=== PATIENT | male | born 1985 | race Caucasian/White ===

== ENCOUNTER 2022-07-08 16:26 | Inpatient (IN) | payer OTHER, SELFPAY ==
--- NOTE | ~2022-07-08 | XR_ITS ---
EXAMINATION: XR chest 2V 07/08/2022 17:30 INDICATION: Chest pain PROCEDURE: 2 view chest COMPARISON: CT chest dated 12/08/2018 FINDINGS: The lungs are clear. The cardiomediastinal silhouette is within normal limits. There are no pleural effusions. There is no pneumothorax suspected. IMPRESSION: 1: NO ACUTE CARDIOPULMONARY DISEASE. Reviewed, dictated and finalized at location A. [employer]
[2022-07-08 16:35] VITALS: BP 161/113; PULSE 96; RESP 18; TEMP 36.3; O2SAT 100
--- NOTE | 2022-07-08 16:52 | ECG_ITS ---
Measurements Intervals [place] Rate: 89 P: 72 TX: 129 QRS: 49 QRSD: 88 T: 14 QT: 357 QTc: 435 Interpretive Statements SINUS RHYTHM CONSIDER INFERIOR INFARCT, AGE INDETERMINATE BASELINE ARTIFACT- I, III ABNORMAL ECG NO PREVIOUS ECG AVAILABLE FOR COMPARISON Electronically Signed On 07-08-2022 20:22:16 COLLATERAL ANALYST by Volodymyr Bradley D.O.
--- NOTE | 2022-07-08 16:57 | PC.NURSE ---
when ekg completed pt inquiring about how long is this ordeal going to take . plan of care regarding cp and si reviewed with pt.
--- NOTE | 2022-07-08 17:16 | ED.CHESTPAIN ---
HPI - Chest Pain General Chief Complaint: Chest Pain <JACKIE Gonzalez Last Filed: 07/08/22 22:50> Stated Complaint: ekg concerns <JACKIE Gonzalez Last Filed: 07/08/22 22:50> Time Seen by Provider: 07/08/22 17:06 <JACKIE Gonzalez Last Filed: 07/08/22 22:50> History of Present Illness HPI narrative: 36-year-old male with a history of hypertension and asthma here for evaluation of chest pain over the past week. Patient states the pain is present in his left upper chest, occasionally moves to his left arm and his left scapula. The pain seems to come on at random but is alleviated at nighttime when he is lying down flat. Pain is worse when he smokes. He attempted ibuprofen and Tylenol without relief of his symptoms. Denies a history of previous similar sensation. No nausea, vomiting, cough, shortness of breath, fevers or chills, leg swelling or pain. He did have COVID last month and states that his respiratory symptoms have improved. Patient presented to his PCP today for the symptoms, had an EKG done that was reportedly abnormal and so he was referred to the ED. Has a family history of cardiac disease in his father. No recent long trips or travel, surgery, history of DVT or PE. Incidentally patient high risk on [place] scale due to SI with plan; appropriate precautions taken <JACKIE Gonzalez Last Filed: 07/08/22 22:50> Related Data Home Medications: Home Medications Medication Instructions Recorded Confirmed albuterol sulfate 90 mcg/actuation 2 puff inhalation Q6H PRN 07/08/22 07/08/22 aerosol inhaler Shortness Of Breath Or Wheezing hydroxyzine HCl 25 mg tablet 25 mg PO QID PRN Anxiety 07/08/22 07/08/22 valsartan 320 mg tablet 320 mg PO DAILY 07/08/22 07/08/22 venlafaxine 75 mg capsule,extended 75 mg PO DAILY 07/08/22 07/08/22 release 24 hr <JACKIE Gonzalez Last Filed: 07/08/22 22:50> Allergies/Adverse Reactions: Allergies Allergy/AdvReac Type Severity Reaction Status Date / Time No Known Allergies Allergy Unverified 05/13/16 13:34 <Yamileth Longoria PA-C - Last Filed: 07/08/22 22:50> Review of Systems Review of Systems: Gen.: Denies fevers or chills Eyes: Denies eye pain or visual change ENT: Denies congestion Respiratory: Denies shortness of breath or cough CV: Reports chest pain GI: Denies abdominal pain nausea, emesis or diarrhea : denies burning, urgency, frequency or hematuria Musculoskeletal: Denies back pain or muscle pain Neuro: Denies numbness, tingling, weakness or focal weakness Skin: Denies rash Except as documented, all other systems reviewed and negative <Yamileth Longoria PA-C - Last Filed: 07/08/22 22:50> PMFSH Family History Family History: Family History (Updated 07/08/22 @ 21:57 by Eduar Dias RN) Father Congestive heart failure Mother Asthma <Yamileth Longoria PA-C - Last Filed: 07/08/22 22:50> Social History Social History: Social History Smoking status: Never smoker Alcohol intake: current Drinks per week: 10 Substance use: current Substance use type: marijuana Last use: 07/07/2022 Lack of Transportation: No Lack of Food: Never True Current Housing: I Have Housing Concerned About Future Housing: No Difficulty Paying Gas/Electric Bills: No Difficulty Paying for Meds: No Currently Unemployed: No Education: Master's Degree or Higher Difficulty w/ Childcare or Family Care: No Spiritual care concerns: No <Yamileth Longoria PA-C - Last Filed: 07/08/22 22:50> Exam Narrative: APPEARANCE: Well appearing, no pain in distress, well-nourished. Head: Normocephalic and atraumatic. EYES: PERRLA/EOMI, conjunctivae clear NOSE: No nasal drainage EARS: External ear normal in appearance THROAT: Oropharynx is clear. Mucous membranes are moist. NECK: Supple. No adenopathy, no masses. RESPIRATORY: Airway patent,
[2022-07-08 18:54] LABS: Basophils Absolute Auto 0.1 K/mm3 (0.0-0.1); Basophils Percent Auto 0.7 % (0.2-1.2); Eosinophils Percent Auto 0.1 % (0-4.4); Hematocrit 46.3 % (42.0-52.0); Hemoglobin 16.2 g/dL (14.0-18.0); Immature Granulocyte Absolute 0.02 K/mm3 (0.00-0.031); Immature Granulocyte Percent A 0.2 % (0-0.5); Lymphocytes Absolute Auto 1.43 K/mm3 (0.9-3.2); Lymphocytes Percent Auto 15.1 % (18.3-44.2); Mean Corpuscular Volume 97.3 fl (80-100); Monocytes Absolute Auto 0.7 K/mm3 (0.1-0.6); Neutrophils Absolute Auto 7.3 K/mm3 (1.3-6.7); Neutrophils Percent Auto 76.9 % (45.5-73.1); Platelet Count Result 271 k/mm3 (150-375); Red Blood Count 4.76 M/mm3 (4.6-6.20); Red Cell Distribution Width 12.6 % (11.5-14.5); White Blood Count 9.5 K/mm3 (4.5-10.0)
[2022-07-08 19:15] LABS: Alanine Aminotransferase 84 U/L (6-50); Albumin Level 4.4 g/dL (3.5-5.1); Alkaline Phosphatase 85 U/L (38-126); Anion Gap 7 mmol/L (8-16); Aspartate Amino Transferase 80 U/L (17-59); Bilirubin,Total 0.6 mg/dL (0.2-1.3); Blood Urea Nitrogen 9 mg/dL (9-20); Calcium 8.7 mg/dL (8.4-10.2); Carbon Dioxide 27 mmol/L (22-30); Chloride 106 mmol/L (98-107); Estimated CRCL calculation 135 ml/min; Estimated Glomerular Filt Rate > 60; Glucose 128 mg/dL (65-110); Lipase 33 U/L (23-300); Potassium 3.9 mmol/L (3.4-5.0); Sodium 140 mmol/L (137-145)
[2022-07-08 19:26] LABS: Amphetamine Screen Urine Negative (Negative); Barbiturate Screen Urine Negative (Negative); Benzodiazepines Screen Urine Negative (Negative); Cannabinoid Screen Urine Positive (Negative); Cocaine Screen Urine Negative (Negative); Methadone Screen Urine Negative (Negative); Opiate Screen Urine Negative (Negative); Phencyclidine Screen Urine Negative (Negative)
[2022-07-08 19:29] LABS: Influenza A QL RT-PCR Negative (Negative); Influenza B QL RT-PCR Negative (Negative); SARS-CoV-2 RNA PCR Negative
[2022-07-08] MEDS: ASPIRIN 81 MG CHEWABLE TABLET 324 MG PO (19:48)
[2022-07-08 19:52] LABS: D Dimer 0.44 ug/mL (<0.48)
[2022-07-08 19:59] LABS: Prothrombin Time 13.2 Seconds (11.1-14.7)
[2022-07-08 20:00] LABS: Partial Thromboplastin Time 28.3 SECONDS (22.3-36.8)
--- NOTE | 2022-07-08 20:21 | PM.IMHP ---
H&P: HPI History of Present Illness Date/Time: 07/08/22 20:21 Chief Complaint: Chest pain Narrative: 36-year-old male with with history of hypertension, hyperlipidemia, positive family history of ND, father had ND about 46 years old presented to ED of chest pain. Patient started to have chest pain on Tuesday, locating in left chest, radiating to left shoulder, associated with dyspnea. Pain started when patient was walking. Patient had another episode of chest pain today, therefore patient came to ER for evaluation. Patient denies fever, chills, cough, abdominal pain, nausea vomiting diarrhea dysuria. In the ER, patient was found have elevated troponin, EKG shows sinus rhythm no specific ST T wave changes. D-dimer is negative. Patient received aspirin 325 mg, Lovenox 1 milligram/kilos in the ER. We admit patient for further evaluation and management Review of Systems Review of Systems: All systems reviewed & are unremarkable except as noted in HPI and below Meds Home Medications and Allergies Allergies Allergy/AdvReac Type Severity Reaction Status Date / Time No Known Allergies Allergy Unverified 05/13/16 13:34 Vital Signs Vital Signs - 24 hr 07/08/22 16:35 Temperature 97.4 F L Pulse Rate 96 Respiratory Rate 18 Blood Pressure 161/113 H Pulse Oximetry 100 Oxygen Delivery Room Air Exam Narrative: GENERAL: Pleasant, in no acute distress. Well-nourished. - EYES: EOMI. Anicteric. - HENT: Moist mucous membranes. - LUNGS: Clear to auscultation bilaterally, no wheezing, rhonchi, or rales. - CARDIOVASCULAR: Regular rate and rhythm. No murmur. No JVD. - ABDOMEN: Soft, non-tender and non-distended. No palpable masses. - EXTREMITIES: No edema. Peripheral pulses 2+. Non-tender. - NEUROLOGIC: No focal neurological deficits. CN II-XII grossly intact. - PSYCHIATRIC: Awake, Alert and oriented x 3. Appropriate mood and affect. - SKIN: No rashes or lesions. Warm. - LYMPH: No cervical lymphadenopathy. H&P: Results Labs Labs: Short CBC 07/08/22 Range/Units 18:43 WBC 9.5 (4.5-10.0) K/mm3 Hgb 16.2 (14.0-18.0) g/dL Hct 46.3 (42.0-52.0) % Plt Count 271 (150-375) k/mm3 BMP 07/08/22 18:43 Sodium 140 Potassium 3.9 Chloride 106 Carbon Dioxide 27 BUN 9 Creatinine 0.70 Glucose 128 H Calcium 8.7 Cardiac Enzymes 07/08/22 Range/Units 18:43 Troponin I 2.480 H* (0.000-0.034) ng/mL Liver Function 07/08/22 Range/Units 18:43 Total Bilirubin 0.6 (0.2-1.3) mg/dL AST 80 H (17-59) U/L ALT 84 H (6-50) U/L Alkaline Phosphatase 85 (38-126) U/L Albumin 4.4 (3.5-5.1) g/dL Assessment and Plan Assessment and plan (1) Acute non-ST elevation myocardial infarction (NSTEMI): Code(s): I21.4 - Non-ST elevation (NSTEMI) myocardial infarction Status: Acute Assessment and Plan: Chest pain Patient has family history of CAD Elevated troponin, EKG shows sinus rhythm no specific ST-T wave changes Received aspirin 325 mg once, Lovenox 1 milligram/kilos q.12 hour Start aspirin 81 mg a day p.o., nitroglycerin sublingual Pain management p.r.n. Keep patient NPO after midnight start normal saline IV Consult laundry aid for evaluation (2) Hyperlipidemia: Code(s): E78.5 - Hyperlipidemia, unspecified Status: Acute Assessment and Plan: Follow lipid panel Start Lipitor 40 mg today p.o. (3) Uncontrolled hypertension: Code(s): I10 - Essential (primary) hypertension Status: Acute Assessment and Plan: Not on home medication Start losartan 50 mg a day p.o. Plan Patient may stay more than 2 midnights in the hospital
[2022-07-08 21:40] VITALS: BP 168/105; PULSE 82; RESP 16; TEMP 36.1; O2SAT 100
[2022-07-08 21:45] VITALS: BMI 29.5
[2022-07-08 21:46] LABS: Cholesterol 264 mg/dL (0-200); HDL Direct 42 mg/dL; Triglycerides 133 mg/dL (<150)
[2022-07-08 21:57] LABS: LDL Cholesterol Direct 179 mg/dL
--- NOTE | 2022-07-08 21:57 | ADMGEN ---
This patient, Stephan Cisneros, was admitted to IMU Room 205-02. Patient/family oriented to hospital policies and general routines including ID bracelet, bed and alarms, visiting hours, pain management, procedures, bathroom and other care routines, personal items, smoking policy, room service/diet, and visiting hours. Information on how to activate the Rapid Response Team has been discussed. Patient/Family are encouraged to report perceived risks to care and to ask questions if they do not understand what they are told or what they should do.
[2022-07-08 22:00] VITALS: PULSE 91
[2022-07-08] MEDS: SODIUM CHLORIDE 0.9% IV 1,000 ML 125 ML IV CONT (22:44)
[2022-07-08] MEDS: ENOXAPARIN 100 MG/ML SYRINGE 90 MG SUB-Q (22:44)
[2022-07-09] VITALS (37 sets, daily range): BP systolic 141–172; BP diastolic 89–123; PULSE 76–101; RESP 11–20; TEMP 35.7–36.6; O2SAT 95–100
[2022-07-09] MEDS: ALBUTEROL SULFATE (*SP) AEROSOL 1 PUFF 2 PUFF INHALATION ×2 (04:20→13:15)
[2022-07-09] MEDS: hydrOXYzine HCL 25 MG TABLET PO ×3 (04:22→21:49)
[2022-07-09] MEDS: oxyCODONE/ACETAMINOPHEN (*CRX) 5-325 MG TABLET 1 TABLET PO ×2 (06:10→21:49)
[2022-07-09] MEDS: SODIUM CHLORIDE 0.9% IV 1,000 ML 125 ML IV CONT ×3 (06:10→23:32)
--- NOTE | 2022-07-09 07:00 | ECHO_ITS ---
Patient Info Name: Stephan Cisneros Age: 36 years : 1985 Gender: Male Ht: 68 in Wt: 194 lbs BSA: 2.08 m2 HR: 86 bpm BP: 164 / 111 mmHg Heart Rhythm: Sinus Rhythm Exam Date: 07/09/2022 8:46 AM Exam Location: [facility] Patient Status: Outpatient Admit Date: 07/08/2022 Staff Ordering Physician: Yamileth Longoria PA-C Survey Party Chief: Wil Araujo, ASHISH, RT Attending Provider: Jose Kerr MD Referring Physician: Von LEONARDO; Exam Type: CA echo doppler color flow Study Info Indications R07.9 - Chest pain, unspecified Complete two-dimensional, color flow and Doppler transthoracic echocardiogram is performed. Strain analysis performed. Summary 1. Complete two-dimensional, color flow and Doppler transthoracic echocardiogram is performed. 2. Normal left ventricular size and overall systolic function. 3. Mild hypokinesia at the base of the inferior wall. 4. No valvular dysfunction. Left Ventricle Left ventricular chamber dimension is normal. Left ventricular systolic function is normal, estimated at 60-65%. The left ventricular diastolic function is normal. Right Ventricle Right ventricular chamber dimension is normal. Left Atria Left atrial chamber dimension is normal. Right Atria Right atrial chamber dimension is normal. Aortic Valve The aortic valve is normal. Pulmonic Valve The pulmonic valve is normal. Mitral Valve The mitral valve has normal leaflets. Tricuspid Valve The tricuspid valve leaflets are normal. Pericardium/Pleural The pericardium appears normal. Aorta The aortic root size at the sinus of Valsalva is normal. Left Ventricular Outflow Tract Name Value Normal LVOT 2D LVOT Diameter 2.0 cm LVOT Doppler LVOT Peak Gradient 4 mmHg LVOT Mean Gradient 2 mmHg LVOT VTI 18 cm LVOT VTI/AV VTI Ratio 0.8 LVOT Stroke Volume 56 ml LVOT CO 5.0 l/min LVOT CI 2.4 l/min/m2 Mitral Valve Name Value Normal MV Doppler MV Decel [place] 658 cm/s2 MV PHT 32 ms MV Area (PHT) 6.8 cm2 4.0-5.0 MV Diastolic Function MV E Peak Velocity 73 cm/s MV A Peak Velocity 57 cm/s MV E/A 1.3 MV Decel Time 112 ms MV Annular TDI MV E/e' (Septal) 6.7 <=8.0 MV E/e' (Lateral) 5.6
--- NOTE | 2022-07-09 08:41 | PM.CNCAR ---
Assessment and Plan Assessment and plan (1) Acute non-ST elevation myocardial infarction (NSTEMI): Code(s): I21.4 - Non-ST elevation (NSTEMI) myocardial infarction Status: Acute Plan This is a relatively young 36-year-old man with hypertension and family history of early coronary disease in his father. He has been having intermittent chest pain since last weekend on Tuesday. He comes to the hospital yesterday where his ECG does show some inferior Q-waves and his troponin level is significantly elevated. Recommendation at this time is to arrange for coronary angiography. This will be done later this afternoon and recommendations after this of course will be forthcoming Fahad Flynn MD [facility] History of Present Illness History of Present Illness Consult date/time: 07/09/22 08:41 Reason For Visit: NSTEMI Narrative: This is a 36-year-old man I am seeing at the request of the hospitalist because of chest pain and troponin elevation. The patient is unknown to me prior to this consultation and is not known to have cardiac problems prior to this. He has been having episodes of chest pain since last weekend on Tuesday. He says actually the symptoms began a number of days before that but the became more severe or concerning on Tuesday of last weekend where he described having relatively severe pain in the initially the interscapular region of his back radiating into the left precordium and then down into the left arm. The symptoms were at least moderate if not severe there were not associated with a sense of air hunger diaphoresis nausea or vomiting. The symptoms improved through the course of the day as he tried to lie down and relax. He then noticed over the course of this past week at intermittent symptoms that would tend to occur if he was ambulating and tend to be better if he was lying down to rest. He went to see his primary care physician yesterday who apparently saw him in the office and referred him to the emergency department here. In the emergency department his electrocardiogram shows sinus rhythm with small but definite Q-waves in the inferior leads. He had a significant troponin elevation over 2 that has trended in a slightly downward direction. He was given aspirin, systemic anticoagulation and admitted to the IMU. He seems to be comfortable lying supine in bed as I see him in the room for consultation and offers no other complaints. He does report a history of hypertension and a history of premature coronary disease in his father who had a myocardial infarction in his 40s. His father is alive and has undergone cardiac surgery the patient is not really aware many of these details. Review of Systems Constitutional: Constitutional: Reports no additional constitutional complaints Eyes: Eyes: Reports no additional eye complaints ENT: Reports system reviewed and no additional complaints, except as documented Cardiovascular: Cardiovascular: Reports as per HPI Respiratory: Respiratory: Reports no additional respiratory complaints Gastrointestinal: Gastrointestinal: Reports no additional gastrointestinal complaints Musculoskeletal: Musculoskeletal: Reports no additional musculoskeletal complaints Integumentary/Breasts: Skin/Breast: Reports system reviewed and no additional complaints, except as docu Neurologic: Reports system reviewed and no additional complaints, except as documented Psychiatric: Psychiatric: Reports suicidal ideation Endocrine: Endocrine: Reports no additional endocrine complaints Hematologic/Lymphatic: Hematologic/Lymphatic: Reports no additional hematologic/lymphatic complaints Allergic/Immunologic: Allergic/Immunologic: Reports no additional allergic/immunologic complaints [facility] Family History Family History (Updated 07/08/22 @ 21:57 by Eduar Dias RN) Father Congestive heart failure Mother Asthma Social History Social History Smoking status: Never smoker Al
[2022-07-09] MEDS: VENLAFAXINE HCL XR 75 MG CAP.ER.24H PO (09:26)
[2022-07-09] MEDS: ASPIRIN 81 MG ENTERIC TABLET PO (09:26)
[2022-07-09] MEDS: ATORVASTATIN 40 MG TABLET PO (09:27)
[2022-07-09] MEDS: LOSARTAN POTASSIUM 50 MG TABLET PO (09:27)
--- NOTE | 2022-07-09 10:20 | PM.IMPN ---
Progress Note: A&P Assessment and Plan (1) Acute non-ST elevation myocardial infarction (NSTEMI): Code(s): I21.4 - Non-ST elevation (NSTEMI) myocardial infarction Status: Acute Assessment and Plan: presented with intermittent Chest pain Patient has family history of premature CAD Elevated troponin, EKG shows sinus rhythm no specific ST-T wave changes Received aspirin 325 mg once, Lovenox 1 milligram/kilos q.12 hour Start aspirin 81 mg a day p.o., nitroglycerin sublingual Pain management p.r.n. consulted cardiology and planned heart catheterisation plan to add bb, await cath result. metoprolol xl will await until cath (2) Hyperlipidemia: Code(s): E78.5 - Hyperlipidemia, unspecified Status: Acute Assessment and Plan: Follow lipid panel ldl 179 startd on Lipitor 40 mg today p.o. (3) Uncontrolled hypertension: Code(s): I10 - Essential (primary) hypertension Status: Acute Assessment and Plan: Not on home medication Start losartan 50 mg a day p.o. Plan Subjective Date/time seen: 07/09/22 10:20 Interval history: 36-year-old male with with history of hypertension, hyperlipidemia, positive family history of TN, father had TN about 46 years old presented to ED of chest pain.? Patient started to have chest pain on Tuesday, locating in left chest, radiating to left shoulder, associated with dyspnea.? Pain started when patient was walking.? Patient had another episode of chest pain today, therefore patient came to ER for evaluation.? Patient denies fever, chills, cough, abdominal pain, nausea vomiting diarrhea dysuria.? In the ER, patient was found have elevated troponin, EKG shows sinus rhythm no specific ST T wave changes.? D-dimer is negative.? Patient received aspirin 325 mg, Lovenox 1 milligram/kilos in the ER.? We admit patient for further evaluation and management 07/09/2022: feels okay currently. no sob, chest pain. feels a bit anxious. Review of Systems Review of Systems: All systems reviewed & are unremarkable except as noted in HPI and below Exam Narrative: GENERAL: Pleasant, in no acute distress. Well-nourished. - EYES: EOMI. Anicteric. - HENT: Moist mucous membranes. - LUNGS: Clear to auscultation bilaterally, no wheezing, rhonchi, or rales. - CARDIOVASCULAR: Regular rate and rhythm. No murmur. No JVD. - ABDOMEN: Soft, non-tender and non-distended. No palpable masses. - EXTREMITIES: No edema. Peripheral pulses 2+. Non-tender. - NEUROLOGIC: No focal neurological deficits. CN II-XII grossly intact. - PSYCHIATRIC: Awake, Alert and oriented x 3. Appropriate mood and affect. - SKIN: No rashes or lesions. Warm. - LYMPH: No cervical lymphadenopathy. Objective Data Vital Signs Vital Signs: Vital Signs - 24 hr 07/08/22 16:35 07/08/22 21:40 07/08/22 22:00 Temperature 97.4 F L 97.0 F L Pulse Rate 96 82 91 Respiratory Rate 18 16 Blood Pressure 161/113 H 168/105 H Pulse Oximetry 100 100 Oxygen Delivery Room Air 07/09/22 00:00 07/09/22 00:00 07/09/22 02:00 Temperature 97.1 F L Pulse Rate 84 99 76 Respiratory Rate 14 Blood Pressure 160/93 H Pulse Oximetry 100 Oxygen Delivery 07/09/22 04:00 07/09/22 04:00 07/09/22 06:00 Temperature 97.6 F Pulse Rate 95 88 86 Respiratory Rate 14 Blood Pressure 164/111 H Pulse Oximetry 99 Oxygen Delivery 07/09/22 08:00 Temperature 96.2 F L Pulse Rate 84 Respiratory Rate 16 Blood Pressure 161/103 H Pulse Oximetry 100 Oxygen Delivery Intake/Output Intake/Output: Intake & Output 07/06/22 07/07/22 07/08/22 07/09/22 23:59 23:59 23:59 23:59 Intake Total 1355 Output Total 1200 Balance 155 Meds/Results Medications: Active Medications Generic Name Dose Route Start Last Admin Trade Name Freq PRN Reason Stop Dose Admin Acetaminophen 650 mg 07/08/22 20:24 Acetaminophen 325 Mg Tablet PO Q6H PRN Mild Pain (1-3) or Fever Albuterol 2 p
--- NOTE | 2022-07-09 12:55 | WPDMODSED ---
Moderate Sedation Note-Pt Data Patient Data Diagnosis: Recent [place] Present Complaint: intermittent episodes of chest pain following severe episode of chest pain 6 days prior to admission Procedure to be performed/Plan: left heart catheterization Allergies Allergy/AdvReac Type Severity Reaction Status Date / Time No Known Allergies Allergy Unverified 05/13/16 13:34 Home Medications Medication Instructions Recorded Confirmed Type albuterol sulfate 90 mcg/actuation 2 puff inhalation Q6H PRN 07/08/22 07/08/22 History aerosol inhaler Shortness Of Breath Or Wheezing hydroxyzine HCl 25 mg tablet 25 mg PO QID PRN Anxiety 07/08/22 07/08/22 History valsartan 320 mg tablet 320 mg PO DAILY 07/08/22 07/08/22 History venlafaxine 75 mg capsule,extended 75 mg PO DAILY 07/08/22 07/08/22 History release 24 hr Current Medications: Active Medications Acetaminophen (Acetaminophen 325 Mg Tablet) 650 mg PO Q6H PRN PRN Reason: Mild Pain (1-3) or Fever Albuterol (Albuterol Sulfate (*Sp) Aerosol 1 Puff) 2 puff INHALATION Q6H PRN PRN Reason: Shortness Of Breath Or Wheezing Last Admin: 07/09/22 04:20 Dose: 2 puff Aspirin (Aspirin 81 Mg Enteric Tablet) 81 mg PO DAILY [facility] Last Admin: 07/09/22 09:26 Dose: 81 mg Atorvastatin Calcium (Atorvastatin 40 Mg Tablet) 40 mg PO DAILY [facility] Last Admin: 07/09/22 09:27 Dose: 40 mg Enoxaparin Sodium (Enoxaparin 100 Mg/Ml Syringe) 90 mg SUB-Q Q12HR [facility] Last Admin: 07/09/22 09:00 Dose: Not Given Hydromorphone HCl (Hydromorphone Hcl Inj (*Crx) 1 Mg/Ml Syr) 0.5 mg IV PUSH Q4H PRN PRN Reason: Chest Pain Hydroxyzine HCl (Hydroxyzine Hcl 25 Mg Tablet) 25 mg PO QID PRN PRN Reason: Anxiety Last Admin: 07/09/22 04:22 Dose: 25 mg Sodium Chloride (Normal Saline Iv) 1,000 mls @ 125 mls/hr IV CONT .Q8H [facility] Last Admin: 07/09/22 06:10 Dose: 125 mls/hr Losartan Potassium (Losartan Potassium 50 Mg Tablet) 50 mg PO DAILY [facility] Last Admin: 07/09/22 09:27 Dose: 50 mg Nitroglycerin (Nitroglycerin Sl 0.4 Mg Tablet) 0.4 mg SUBLINGUAL Q5MIN PRN PRN Reason: Chest Pain Oxycodone/Acetaminophen (Oxycodone/Acetaminophen (*Crx) 5-325 Mg Tablet) 1 tablet PO Q4H PRN PRN Reason: Pain Rated 7-10 Last Admin: 07/09/22 06:10 Dose: 1 tablet Perflutren Lipid Microsphere (Perflutren Lipid Microspheres 1.5 Ml Vial Diluted To 10 Ml Total Volume) 0 ml IV PUSH ONCE PRN; Protocol PRN Reason: adequate visualization Stop: 07/10/22 19:49 Venlafaxine HCl (Venlafaxine Hcl Xr 75 Mg Cap.Er.24h) 75 mg PO DAILY [facility] Last Admin: 07/09/22 09:26 Dose: 75 mg Sedation/Anesthesia: No previous sedation/anesthesia problems (including family history). [facility] Family History Family History (Updated 07/08/22 @ 21:57 by Eduar Dias RN) Father Congestive heart failure Mother Asthma Social History Social History Smoking status: Never smoker Alcohol intake: current Drinks per week: 10 Substance use: current Substance use type: marijuana Last use: 07/07/2022 Lack of Transportation: No Lack of Food: Never True Current Housing: I Have Housing Concerned About Future Housing: No Difficulty Paying Gas/Electric Bills: No Difficulty Paying for Meds: No Currently Unemployed: No Education: Master's Degree or Higher Difficulty w/ Childcare or Family Care: No Spiritual care concerns: No Mod Sed Physical Exam Physical Exam Pre Procedural Exam: Normal: Appearance, Nose, Neck, Throat, Airway, Lungs, Heart Size, Heart Rate, Heart Rhythm, Neuro Exam and Extremities Hours since solid foods: 12 Hours since liquid intake: 12 Mallampati Classification: class II Internal Medicine - PN: Obj Da Vital Signs Vital Signs: Vital Signs - 24 hr 07/08/22 16:35 07/08/22 21:40 07/08/22 22:00 Temperature 36.3 C L 36.1 C L Pulse Rate 96 82 91 Respiratory Rate 18 16 Blood Pressure 161/113 H 168/105 H Pulse Oximetry 100 100 Oxygen Delivery Room Air 07/09/22 00:00
--- NOTE | 2022-07-09 12:57 | WPDCARDPROC ---
Cardiac Cath Procedure Note Date of procedure:: 07/09/22 Performing physician:: Fahad Flynn MD Indication:: recent myocardial infarction Brief clinical history:: this is a 36-year-old man without prior history of coronary disease who has been experiencing intermittent episodes of chest pain and had severe chest pain last weekend on Tuesday. He did not come in for medical attention at that time. Since then he has been having intermittent episodes of chest discomfort that are occurring primarily with physical activity. Troponin level was elevated over 2 and is trending downward. Electrocardiogram shows inferior Q-waves but no acute ST segment deviation. Procedure Procedure performed:: Left ventriculogram coronary angiography attempted PCI of RCA Sedation/Medication given:: fentanyl 50 mg Versed 2 mg case start time 12:05 p.m. case end time 12:50 p.m. sedation provided by Ava Patricia RN, trained observer Access site:: right femoral artery Estimated blood loss:: 30 cc Procedure note:: patient was brought to the cardiac catheterization lab in the postabsorptive state where the right femoral triangle was prepared and draped in the normal fashion. Anesthesia was provided with 1% lidocaine infiltrated locally. Using the modified Seldinger technique the femoral artery was punctured and a 5 Malawian vascular sheath was placed. I then used a 5 [place]awian angled pigtail catheter to measure left-sided hemodynamics and to inject LV g in the 30 degree DANIELS projection. Following this standard 5 [place] FL4 catheter was used to engage and inject the left coronary artery in multiple projections. A 5 [place]ian JR4 catheter was used then to engage and inject the right coronary artery in orthogonal projections. The cineangiograms were reviewed and the case was discussed with the patient. Attempt at PCI of the right coronary artery was recommended and carried out as detailed below. Prior to PCI attempt to the 5 Malawian sheath was exchanged over a guidewire for a 6 Malawian sheath. The patient was anticoagulated with a bolus and infusion of Angiomax he received aspirin and 180 Brilinta prior to attempted PCI. Following the case the sheath was sutured into position the patient was stable and was taken to the holding area for post cath recovery. There were no signs of any procedural complications and no evidence of groin hematoma upon leaving the cardiac catheterization lab. Findings:: Hemodynamics: Central aortic pressure is 78 over 104. Left ventricle 178/0 end-diastolic pressure 14 there is transvalvular gradient across the aortic valve. Left ventricle: The LV is normal in size. The inferior wall is mild to moderately hypodynamic but not akinetic the global ejection fraction appears to be normal at 55% the anterior wall and apex contract normally. The left main coronary artery is nicely patent left anterior descending is a moderate caliber artery extending down to apex. The LAD and its branches show mild diffuse plaquing with luminal irregularities but no flow-limiting disease was identified. The circumflex is a moderate caliber artery giving rise to the marginal branches. The circumflex system also has very mild diffuse luminal irregularities no angiographically significant disease. The right coronary artery is very large in caliber proximally and was dominant to the posterior circulation. The RPDA and RPL branches are seen collateralized from the left coronary artery retrograde. Right coronary artery has a total occlusion in the 2nd portion and prior to this has a tubular area of 70-80% stenosis starting in the 1st portion of the artery. Right ventricular acute marginal branch takes off at the site of the occlusion and is still patent with DANNA 3 flow. Intervention: The right coronary was engaged using a 6 [place]awian JR4 guiding catheter. I used a 0.014 BMW coronary guidewire advanced down to the point of occlusion bu
--- NOTE | 2022-07-09 13:42 | SUR.PHASEII ---
1340 RT at bedside with inhaler. Also clarified orders with Dr. Flynn. Dr. Flynn is aware patient got 50 mg of Losartan already this morning. He would still like patient to receive PO 320 mg of Valsartan and [address] Flynn also made aware of patient's wheezing and request for albuterol and patient would still like patient to receive his toprol XL 100 mg.
[2022-07-09] MEDS: METOPROLOL SUCCINATE EXT REL 100 MG TABCR PO (13:47)
[2022-07-09] MEDS: VALSARTAN 160 MG TABLET 320 MG PO (13:47)
--- NOTE | 2022-07-09 14:01 | SUR.PHASEII ---
wood dowel machine operator dr. simon notified that pt c/o heartburn . pt does not wish to take mylanta or maalox prescribed by . pt wants tums instead
--- NOTE | 2022-07-09 14:08 | SUR.PHASEII ---
1344 patient handoff to Kaya Murrell RN.
[2022-07-09] MEDS: hydrALAZINE HCL 20 MG/ML VIAL IV PUSH (14:46)
--- NOTE | 2022-07-09 14:49 | SUR.PHASEII ---
hydralazine 20 mg ivp by nurse gaby cordoba rn per orders
--- NOTE | 2022-07-09 16:44 | SUR.PHASEII ---
phase 2 complete and transfer to room 214. phone report to nurse eladia delgado pt stable at time of transport. rt groin d/i with gauze & tegaderm. no hematoma. rt pedal pulse diminished but palpable. iv patent/intact and ns infusing via pump per orders. with pt at this time. awaiting meal.
[2022-07-10] VITALS (13 sets, daily range): BP systolic 143–179; BP diastolic 93–110; PULSE 62–88; RESP 14–22; TEMP 36.2–36.4; O2SAT 98–100
[2022-07-10] MEDS: oxyCODONE/ACETAMINOPHEN (*CRX) 5-325 MG TABLET 1 TABLET PO ×2 (03:47→13:52)
[2022-07-10] MEDS: hydrALAZINE HCL 20 MG/ML VIAL 10 MG IV PUSH (04:54)
[2022-07-10] MEDS: ALBUTEROL SULFATE (*SP) AEROSOL 1 PUFF 2 PUFF INHALATION (08:27)
--- NOTE | 2022-07-10 09:02 | PM.PNCARD ---
Progress Note: A&P Assessment and Plan (1) Acute non-ST elevation myocardial infarction (NSTEMI): Code(s): I21.4 - Non-ST elevation (NSTEMI) myocardial infarction Status: Acute Plan 36-year-old man with coronary artery disease, recent inferior wall GA probably at least a week before presentation by his history. Total occlusion of the mid right coronary artery was found angiographically attempt at PCI of this primarily because of his young age was attempted unsuccessfully here. Told the patient that it is certainly possible if he continues to have ischemic symptoms total occlusion intervention can be attempted elsewhere. He does have mild plaquing throughout the left coronary artery indicating that this very young man unfortunately is developing significant premature coronary disease. He is stable for discharge today on his current medical regimen. I will see him in short interval follow-up in my office and if he continues to have any symptoms of myocardial ischemia I will be referring him to colleagues in [place] for consideration for SUPERVIS[employer] intervention on the right coronary. This could be done antegrade or possibly retrograde through his collaterals Fahad Flynn MD [facility] Subjective Date/time seen: Date of service: 07/10/22 09:02 Interval history: Follow-up visit in this 36-year-old man with: Newly diagnosed coronary artery disease with recent inferior wall GA. angiographically yesterday found to have total occlusion of the midportion of the RCA. Attempt at PCI to recanalized the vessel was unsuccessful. He does have collateral flow to the RPDA and RPL from the left coronary artery. Left ventricular function is nicely preserved by echo. He therefore has been placed on medical therapy with will hopefully improve his ischemic symptomatology. He feels well this morning and has not been having any chest pain. Beta-latha, isosorbide and rosuvastatin as well as aspirin have been added to his ARB. Exam Const: General: comfortable and no acute distress Other: Pleasant somewhat emotional young man discussing his premature diagnosis of coronary artery disease. HENMT: Mouth: Yes moist mucous membranes Eyes: Sclera: sclerae normal Pupils: Equal, round and reactive pupils present Neck: Neck: supple and no JVD Resp: Effort & Inspection: normal respiratory effort Auscultation: clear to auscultation bilaterally Cardio: Rate: regular rate Rhythm: regular rhythm Other: No murmur no gallop GI: GI Palp: Yes Soft to palpation Auscultation: normal bowel sounds Skin: General skin exam: normal color Neuro: Other: Alert and oriented x3 normal cognition Extrem: Other: No edema, good distal pulses Objective Data Vital Signs Vital Signs: Vital Signs - 24 hr 07/09/22 10:00 07/09/22 13:06 07/09/22 13:15 Temperature 36.6 C Pulse Rate 101 H 79 82 Respiratory Rate 12 12 Blood Pressure 172/120 H 154/112 H Pulse Oximetry 95 96 Oxygen Delivery Room Air Room Air 07/09/22 13:30 07/09/22 13:47 07/09/22 13:45 Temperature Pulse Rate 81 82 80 Respiratory Rate 15 15 Blood Pressure 156/123 H 162/114 H Pulse Oximetry 98 95 Oxygen Delivery Room Air Room Air 07/09/22 14:15 07/09/22 14:30 07/09/22 14:45 Temperature Pulse Rate 83 79 88 Respiratory Rate 12 13 19 Blood Pressure 156/115 H 168/121 H 158/122 H Pulse Oximetry 96 99 97 Oxygen Delivery Room Air Room Air Room Air 07/09/22 15:00 07/09/22 15:45 07/09/22 16:00 Temperature Pulse Rate 98 92 92 Respiratory Rate 14 17 12 Blood Pressure 149/107 H 152/105 H 141/107 H Pulse Oximetry 97 97 97 Oxygen Delivery Room Air Room Air Room Air 07/09/22 16:15 07/09/22 16:30 07/09/22 16:42 Temperature Pulse Rate 90 93 92 Respiratory Rate 14 12 19 Blood Pressure 141/104 H 155/106 H 150/105 H Pulse Oximetry 97 98 97 Oxygen Delivery Room Air Room Air Room Air 07/09/22 14:00 07/09/22 15:07 07/09/22 15:10 Temperature Pul
[2022-07-10] MEDS: ISOSORBIDE MONONITRATE 60 MG TAB.ER.24H PO (10:14)
[2022-07-10] MEDS: ASPIRIN 81 MG ENTERIC TABLET PO (10:14)
[2022-07-10] MEDS: METOPROLOL SUCCINATE EXT REL 100 MG TABCR PO (10:14)
[2022-07-10] MEDS: ROSUVASTATIN 10 MG TABLET 20 MG PO (10:14)
[2022-07-10] MEDS: VENLAFAXINE HCL XR 75 MG CAP.ER.24H PO (10:14)
[2022-07-10] MEDS: VALSARTAN 160 MG TABLET 320 MG PO (10:15)
[2022-07-10] MEDS: hydrOXYzine HCL 25 MG TABLET PO (10:17)
--- NOTE | 2022-07-10 15:25 | PM.DS ---
DS: Admitting Diagnosis Discharge Date 07/10/2022 Admitting Diagnosis chest pain DS: Discharge Diagnosis Discharge Diagnosis (1) Acute non-ST elevation myocardial infarction (NSTEMI): Code(s): I21.4 - Non-ST elevation (NSTEMI) myocardial infarction Status: Acute (2) Hyperlipidemia: Code(s): E78.5 - Hyperlipidemia, unspecified Status: Acute (3) Uncontrolled hypertension: Code(s): I10 - Essential (primary) hypertension Status: Acute DS: Summary Hospital Course Hospital Course: # Acute non-ST elevation myocardial infarction (NSTEMI): presented with intermittent Chest pain Patient has family history of premature CAD Elevated troponin, EKG shows sinus rhythm no specific ST-T wave changes Received aspirin 325 mg once, Lovenox 1 milligram/kilos q.12 hour subsequently started on aspirin 81 mg daily nitroglycerin sublingual p.r.n. consulted cardiology and underwent cardiac catheterization Status post cardiac catheterization on 07/09/2022: Total occlusion of mid right coronary artery attempted PCI because of young is was unsuccessful. There were collaterals. If continues to have symptoms of myocardial ischemia plans to refer to [place] for consideration of CT 0 intervention right coronary. # hyperlipidemia: Follow lipid panel ldl 179 startd on Lipitor 40 mg today p.o. Which was switched to Crestor 20 mg for high doses statin # hypertension chronic uncontrolled On valsartan at home which is continued. Also added metoprolol and Imdur at discharge Follow-up closely for blood pressure control Time Spent with Patient Time attestation: Total time spent providing and/or coordinating discharge services: 35 minutes Exam Narrative: GENERAL: Pleasant, in no acute distress. Well-nourished. - EYES: EOMI. Anicteric. - HENT: Moist mucous membranes. - LUNGS: Clear to auscultation bilaterally, no wheezing, rhonchi, or rales. - CARDIOVASCULAR: Regular rate and rhythm. No murmur. No JVD. - ABDOMEN: Soft, non-tender and non-distended. No palpable masses. - EXTREMITIES: No edema. Peripheral pulses 2+. Non-tender. - NEUROLOGIC: No focal neurological deficits. CN II-XII grossly intact. - PSYCHIATRIC: Awake, Alert and oriented x 3. Appropriate mood and affect. - SKIN: No rashes or lesions. Warm. - LYMPH: No cervical lymphadenopathy. DS: Data Data Completed and Pending Completed studies during hospitalization: Exam Type: ? ? CA echo doppler color flow Study Info Indications ? ? R07.9 - Chest pain,? unspecified Complete two-dimensional, color flow and Doppler transthoracic echocardiogram is performed. ? Strain analysis performed. Account #: ? ? [id number] Summary ? 1. Complete two-dimensional, color flow and Doppler transthoracic echocardiogram is performed. ? 2. Normal left ventricular size and overall systolic function. ? 3. Mild hypokinesia at the base of the inferior wall. ? 4. No valvular dysfunction. Left Ventricle ? Left ventricular chamber dimension is normal. ? Left ventricular systolic function is normal, estimated at 60-65%. ? The left ventricular diastolic function is normal. Right Ventricle ? Right ventricular chamber dimension is normal. Left Atria ? Left atrial chamber dimension is normal. Right Atria ? Right atrial chamber dimension is normal. Aortic Valve ? The aortic valve is normal. Pulmonic Valve ? The pulmonic valve is normal. Mitral Valve ? The mitral valve has normal leaflets. Tricuspid Valve ? The tricuspid valve leaflets are normal. Pericardium/Pleural ? The pericardium appears normal. Aorta ? The aortic root size at the sinus of Valsalva is normal. Procedures/Treatments: Cardiac Cath Procedure Note Date of procedure:: 07/09/22 Performing physician:: Fahad Flynn MD Indication:: ?recent myocardial infarction Brief clinical history:: ?this is a 36-year-old man without prior history of coronary disease w
== END 2022-07-10 17:58 | disposition home or self-care (01) | DRG 174 ==
LOC: ANHED 18:21 → ANHIMU 21:00
PROVIDERS: Physician Assistant; Specialist; Admitting Provider Hospitalist; Emergency Provider Emergency Medicine; PCP Internal Medicine; Visit Provider Internal Medicine
PROC: 4A023N7 Measurement of Cardiac Sampling and Pressure, Left Heart, Percutaneous Approach (ICD-10-PCS; CPT 93452; principal; 2022-07-09 11:00)
PROC: 02703ZZ Dilation of Coronary Artery, One Artery, Percutaneous Approach (ICD-10-PCS; CPT 92920; 2022-07-09 11:00)
DX: I21.4 Non-ST elevation (NSTEMI) myocardial infarction (principal); E78.5 Hyperlipidemia, unspecified; I25.10 Atherosclerotic heart disease of native coronary artery without angina pectoris; I10 Essential (primary) hypertension; J44.9 Chronic obstructive pulmonary disease, unspecified; Z28.21 Immunization not carried out because of patient refusal; Z86.16 Personal history of COVID-19; Z82.49 Family history of ischemic heart disease and other diseases of the circulatory system; Z20.822 Contact with and (suspected) exposure to COVID-19
CPT/HCPCS: 36415; 71046; 80053; 80061; 80307; 83690; 84443; 84484; 85025; 85380; 85610; 85730; 87636; 92920; 93005; 93306; 93458; 94640; 96372; 96374; 99285; A9270; C1725; C1769; C1887; C1894; G0378; G0379; J0360; J0583; J1644; J1650; J2250; J3010; J7030; J7040

== ENCOUNTER 2022-08-10 12:49 | Outpatient (CLI) | payer OTHER, SELFPAY ==
[2022-08-10 13:23] LABS: Basophils Absolute Auto 0.1 K/mm3 (0.0-0.1); Eosinophils Absolute Auto 0.2 K/mm3 (0-0.3); Eosinophils Percent Auto 3.4 % (0-4.4); Hematocrit 44.5 % (42.0-52.0); Hemoglobin 15.5 g/dL (14.0-18.0); Immature Granulocyte Absolute 0.01 K/mm3 (0.00-0.031); Immature Granulocyte Percent A 0.1 % (0-0.5); Lymphocytes Absolute Auto 2.89 K/mm3 (0.9-3.2); Lymphocytes Percent Auto 40.9 % (18.3-44.2); Mean Corpuscular HGB Conc 34.8 g/dl (32-36); Mean Corpuscular Hemoglobin 33.5 pg (26-34); Mean Corpuscular Volume 96.3 fl (80-100); Mean Platelet Volume 10.5 fl (7.4-10.4); Monocytes Absolute Auto 0.4 K/mm3 (0.1-0.6); Monocytes Percent Auto 5.9 % (2.6-8.5); Neutrophils Absolute Auto 3.4 K/mm3 (1.3-6.7); Neutrophils Percent Auto 48.7 % (45.5-73.1); Platelet Count Result 227 k/mm3 (150-375); Red Blood Count 4.62 M/mm3 (4.6-6.20); Red Cell Distribution Width 12.6 % (11.5-14.5); White Blood Count 7.1 K/mm3 (4.5-10.0)
[2022-08-10 13:32] LABS: Anion Gap 6 mmol/L (8-16); Blood Urea Nitrogen 14 mg/dL (9-20); Calcium 9.2 mg/dL (8.4-10.2); Carbon Dioxide 32 mmol/L (22-30); Chloride 98 mmol/L (98-107); Estimated Glomerular Filt Rate > 60; Glucose 149 mg/dL (65-110); Potassium 3.6 mmol/L (3.4-5.0); Sodium 136 mmol/L (137-145)
== END 2022-08-10 12:50 | disposition home or self-care (01) ==
LOC: ANHLAB 12:54
PROVIDERS: PCP Internal Medicine; Visit Provider Internal Medicine
DX: R07.9 Chest pain, unspecified (principal)
CPT/HCPCS: 36415; 80048; 85025

== ENCOUNTER 2022-09-15 14:57 | Outpatient (CLI) | payer OTHER, SELFPAY ==
[2022-09-15 15:52] LABS: Basophils Percent Auto 0.5 % (0.2-1.2); Eosinophils Absolute Auto 0.1 K/mm3 (0-0.3); Eosinophils Percent Auto 0.9 % (0-4.4); Hematocrit 44.5 % (42.0-52.0); Immature Granulocyte Absolute 0.03 K/mm3 (0.00-0.031); Immature Granulocyte Percent A 0.4 % (0-0.5); Lymphocytes Absolute Auto 2.28 K/mm3 (0.9-3.2); Lymphocytes Percent Auto 28.5 % (18.3-44.2); Mean Corpuscular HGB Conc 33.7 g/dl (32-36); Mean Corpuscular Hemoglobin 34.2 pg (26-34); Mean Corpuscular Volume 101.6 fl (80-100); Mean Platelet Volume 10.3 fl (7.4-10.4); Monocytes Absolute Auto 0.7 K/mm3 (0.1-0.6); Monocytes Percent Auto 8.8 % (2.6-8.5); Neutrophils Absolute Auto 4.9 K/mm3 (1.3-6.7); Neutrophils Percent Auto 60.9 % (45.5-73.1); Platelet Count Result 239 k/mm3 (150-375); Red Blood Count 4.38 M/mm3 (4.6-6.20); Red Cell Distribution Width 13.4 % (11.5-14.5)
[2022-09-15 16:04] LABS: Alanine Aminotransferase 56 U/L (6-50); Albumin Level 4.6 g/dL (3.5-5.1); Alkaline Phosphatase 60 U/L (38-126); Anion Gap 5 mmol/L (8-16); Aspartate Amino Transferase 41 U/L (17-59); Bilirubin,Total 0.8 mg/dL (0.2-1.3); Blood Urea Nitrogen 15 mg/dL (9-20); Calcium 9.5 mg/dL (8.4-10.2); Carbon Dioxide 31 mmol/L (22-30); Chloride 102 mmol/L (98-107); Cholesterol 234 mg/dL (0-200); Estimated Glomerular Filt Rate > 60; Glucose 96 mg/dL (65-110); HDL Direct 44 mg/dL; Phosphorus 4.4 mg/dL (2.5-4.5); Potassium 4.3 mmol/L (3.4-5.0); Sodium 138 mmol/L (137-145); Triglycerides 204 mg/dL (<150)
[2022-09-15 16:10] LABS: Appearance Urine Clear (Clear); Bilirubin Urine Negative (Negative); Blood Urine Negative (Negative); Color Urine Yellow (Yellow); Glucose Urine UA Negative (Negative); Ketones Urine Negative (Negative); Leukocyte Esterase Ur Negative LEU/UL (Negative); Nitrate Urine Negative (Negative); Protein Urine Negative (Negative); Specific Grav Ur 1.019 (1.001-1.035); Urobilinogen Urine 0.2 mg/dL (<2.0); pH Urine 7.5 (5.0-9.0)
[2022-09-15 16:16] LABS: LDL Cholesterol Direct 136 mg/dL
[2022-09-15 16:28] LABS: Add Urine Microscopic? NO
[2022-09-15 16:52] LABS: Free T4 Free Thyroxine 0.81 ng/mL (0.78-2.19); Vitamin D 25 Hydroxy 14.5 ng/mL
== END 2022-09-15 14:58 | disposition home or self-care (01) ==
LOC: ANHLAB 15:00
PROVIDERS: PCP Internal Medicine; Visit Provider Internal Medicine
DX: I10 Essential (primary) hypertension (principal); I25.10 Atherosclerotic heart disease of native coronary artery without angina pectoris; R06.2 Wheezing; R94.5 Abnormal results of liver function studies; I25.82 Chronic total occlusion of coronary artery; F41.1 Generalized anxiety disorder; F33.2 Major depressive disorder, recurrent severe without psychotic features
CPT/HCPCS: 36415; 80053; 80061; 80069; 81003; 82306; 84439; 84443; 85025

== ENCOUNTER 2022-11-09 14:20 | Outpatient (CLI) | payer OTHER, SELFPAY ==
[2022-11-09 14:52] LABS: Basophils Absolute Auto 0.1 K/mm3 (0.0-0.1); Eosinophils Absolute Auto 0.1 K/mm3 (0-0.3); Eosinophils Percent Auto 0.8 % (0-4.4); Hematocrit 44.1 % (42.0-52.0); Hemoglobin 15.2 g/dL (14.0-18.0); Immature Granulocyte Absolute 0.02 K/mm3 (0.00-0.031); Immature Granulocyte Percent A 0.3 % (0-0.5); Lymphocytes Absolute Auto 2.78 K/mm3 (0.9-3.2); Lymphocytes Percent Auto 35.5 % (18.3-44.2); Mean Corpuscular HGB Conc 34.5 g/dl (32-36); Mean Corpuscular Hemoglobin 33.6 pg (26-34); Mean Corpuscular Volume 97.4 fl (80-100); Mean Platelet Volume 10.7 fl (7.4-10.4); Monocytes Absolute Auto 0.6 K/mm3 (0.1-0.6); Monocytes Percent Auto 8.1 % (2.6-8.5); Neutrophils Absolute Auto 4.3 K/mm3 (1.3-6.7); Neutrophils Percent Auto 54.3 % (45.5-73.1); Platelet Count Result 271 k/mm3 (150-375); Red Blood Count 4.53 M/mm3 (4.6-6.20); Red Cell Distribution Width 12.8 % (11.5-14.5); White Blood Count 7.8 K/mm3 (4.5-10.0)
[2022-11-09 15:04] LABS: Anion Gap 6 mmol/L (8-16); Blood Urea Nitrogen 18 mg/dL (9-20); Calcium 9.3 mg/dL (8.4-10.2); Carbon Dioxide 32 mmol/L (22-30); Chloride 102 mmol/L (98-107); Estimated Glomerular Filt Rate > 60; Glucose 93 mg/dL (65-110); Potassium 3.8 mmol/L (3.4-5.0); Sodium 140 mmol/L (137-145)
== END 2022-11-09 14:21 | disposition home or self-care (01) ==
LOC: ANHLAB 14:23
PROVIDERS: PCP Internal Medicine; Visit Provider Internal Medicine
DX: I25.118 Atherosclerotic heart disease of native coronary artery with other forms of angina pectoris (principal)
CPT/HCPCS: 36415; 80048; 85025

== ENCOUNTER 2023-03-30 16:24 | Outpatient (CLI) | payer OTHER, SELFPAY ==
[2023-03-30 17:05] LABS: Hematocrit 47.4 % (42.0-52.0); Hemoglobin 16.4 g/dL (14.0-18.0); Mean Corpuscular HGB Conc 34.6 g/dl (32-36); Mean Corpuscular Hemoglobin 33.4 pg (26-34); Mean Corpuscular Volume 96.5 fl (80-100); Mean Platelet Volume 10.3 fl (7.4-10.4); Platelet Count Result 229 k/mm3 (150-375); Red Blood Count 4.91 M/mm3 (4.6-6.20); Red Cell Distribution Width 12.9 % (11.5-14.5); White Blood Count 6.6 K/mm3 (4.5-10.0)
[2023-03-30 17:18] LABS: Alanine Aminotransferase 59 U/L (6-50); Alkaline Phosphatase 51 U/L (38-126); Anion Gap 10 mmol/L (8-16); Aspartate Amino Transferase 57 U/L (17-59); Bilirubin,Total 0.6 mg/dL (0.2-1.3); Blood Urea Nitrogen 18 mg/dL (9-20); Calcium 9.4 mg/dL (8.4-10.2); Carbon Dioxide 25 mmol/L (22-30); Chloride 103 mmol/L (98-107); Cholesterol 198 mg/dL (0-200); Estimated Glomerular Filt Rate > 60; Glucose 103 mg/dL (65-110); HDL Direct 50 mg/dL; Potassium 4.1 mmol/L (3.4-5.0); Sodium 138 mmol/L (137-145); Triglycerides 249 mg/dL (<150)
[2023-03-30 17:29] LABS: LDL Cholesterol Direct 108 mg/dL
[2023-04-04 04:35] LABS: Immunoglobulin A 181 mg/dL (47-310); TTG IGA AB <1.0 U/mL (<15.0)
== END 2023-03-30 16:25 | disposition home or self-care (01) ==
PROVIDERS: PCP Internal Medicine; Referring Provider Nurse Practitioner Family; Visit Provider Nurse Practitioner
DX: R10.9 Unspecified abdominal pain (principal); R94.5 Abnormal results of liver function studies; K62.5 Hemorrhage of anus and rectum; Z09 Encounter for follow-up examination after completed treatment for conditions other than malignant neoplasm; I25.82 Chronic total occlusion of coronary artery; K52.9 Noninfective gastroenteritis and colitis, unspecified; R94.31 Abnormal electrocardiogram [ECG] [EKG]; R07.89 Other chest pain; R06.2 Wheezing; I10 Essential (primary) hypertension; F51.04 Psychophysiologic insomnia; F41.8 Other specified anxiety disorders; L25.5 Unspecified contact dermatitis due to plants, except food
CPT/HCPCS: 36415; 80053; 80061; 82784; 84443; 85027; 86364

== ENCOUNTER 2023-03-31 15:07 | Outpatient (CLI) | payer OTHER, SELFPAY ==
[2023-03-31 19:21] LABS: Toxigenic C. Diff NEGATIVE (NEGATIVE)
== END 2023-03-31 15:08 | disposition home or self-care (01) ==
LOC: ANHLAB 15:11
PROVIDERS: PCP Internal Medicine; Visit Provider Internal Medicine
DX: Z00.01 Encounter for general adult medical examination with abnormal findings (principal); R94.31 Abnormal electrocardiogram [ECG] [EKG]; I25.82 Chronic total occlusion of coronary artery; I25.10 Atherosclerotic heart disease of native coronary artery without angina pectoris; E78.2 Mixed hyperlipidemia; R07.89 Other chest pain; R94.5 Abnormal results of liver function studies; K58.0 Irritable bowel syndrome with diarrhea; J45.30 Mild persistent asthma, uncomplicated; R19.7 Diarrhea, unspecified; K62.5 Hemorrhage of anus and rectum; L25.5 Unspecified contact dermatitis due to plants, except food; F41.1 Generalized anxiety disorder; F33.2 Major depressive disorder, recurrent severe without psychotic features; F51.04 Psychophysiologic insomnia; I10 Essential (primary) hypertension; Z09 Encounter for follow-up examination after completed treatment for conditions other than malignant neoplasm
CPT/HCPCS: 87493

== ENCOUNTER 2023-04-21 15:00 | Outpatient (RCR) | payer OTHER, SELFPAY | END 2023-04-21 23:59 | disposition home or self-care (01) | LOC: ANHCPREHAB 15:00 | PROVIDERS: PCP Internal Medicine; Visit Provider Specialist | DX: Z95.5 Presence of coronary angioplasty implant and graft (principal); I50.89 Other heart failure | CPT/HCPCS: 93798 ==

== ENCOUNTER 2023-05-11 15:00 | Outpatient (RCR) | payer OTHER, SELFPAY | END 2023-05-25 17:07 | disposition home or self-care (01) | LOC: ANHCPREHAB 15:00 | PROVIDERS: PCP Internal Medicine; Visit Provider Specialist | DX: Z95.5 Presence of coronary angioplasty implant and graft (principal); I50.89 Other heart failure | CPT/HCPCS: 93798 ==

== ENCOUNTER 2023-06-03 13:47 | Emergency (ER) | payer OTHER, SELFPAY ==
--- NOTE | 2023-06-03 14:17 | ED.NAVMDI ---
HPI - Nausea/Vomiting/Diarrhea General Chief complaint: Unspecified Stated complaint: diarrhea,nausea Time Seen by Provider: 06/03/23 14:30 Source: patient Mode of arrival: ambulatory Limitations: no limitations History of Present Illness HPI Narrative: Stephan is a 37-year-old male patient presenting to the clinic today with complaints of nausea, sore throat, vomiting, diarrhea, tingling of the skin, buzzing in his head, and left-sided chest discomfort. He reports that the symptoms started today. He believes his son may come home with a stomach bug. Reports he feels as though his heart is beating irregular at times. History of CAD/non STEMI with cardiac stents placed. Related Data Home Medications Medication Instructions Recorded Confirmed albuterol sulfate 90 mcg/actuation 2 puff inhalation Q6H PRN 07/08/22 03/03/23 aerosol inhaler Shortness Of Breath Or Wheezing hydroxyzine HCl 25 mg tablet 25 mg PO QID PRN Anxiety 07/08/22 03/03/23 valsartan 320 mg tablet 320 mg PO DAILY 07/08/22 03/03/23 venlafaxine 75 mg capsule,extended 75 mg PO DAILY 07/08/22 03/03/23 release 24 hr clopidogrel 75 mg tablet (Plavix) 75 mg PO DAILY 03/03/23 03/03/23 fluticasone fur. 100 mcg-umeclid 1 inh inhalation DAILY 03/03/23 03/03/23 62.5 mcg-vilant 25 mcg inhalat.powder (Trelegy Ellipta) hydrochlorothiazide 25 mg tablet 25 mg PO DAILY 03/03/23 03/03/23 rosuvastatin 10 mg tablet (Crestor) 40 mg PO QAM 05/12/23 Allergies Allergy/AdvReac Type Severity Reaction Status Date / Time No Known Allergies Allergy Verified 05/12/23 14:05 Review of Systems Review of Systems: Pertinent positives per HPI. Patient denies any fever, chills, rash, headache, visual changes, dizziness, cough, shortness of breath, chest pain, palpitations, nausea, vomiting, diarrhea, constipation, abdominal pain, or any urinary issues. PMFSH Past Medical History Medical History Abdominal cramping BRBPR (bright red blood per rectum) CAD (coronary artery disease) Chronic diarrhea Elevated ALT measurement Hypertension Irritable bowel syndrome with diarrhea Obesity Family History Family History Father Acute myocardial infarction Congestive heart failure CAD (coronary artery disease) of artery bypass graft Mother Asthma Social History Social History Smoking packs per day: 0.25 Smoking cigarettes per day: 5.0 Years smoked: 5 Smoking pack-years: 1.25 Smoking status: Former smoker Tobacco type: cigarettes Smoking end date: 06/13/13 Additional smoking assessment comments: states he robin uses marajuana Alcohol intake: current Drinks per week: 10 Substance use: current Substance use type: marijuana Last use: 07/07/2022 Lack of Transportation: No Lack of Food: Never True Current Housing: I Have Housing Concerned About Future Housing: No Difficulty Paying Gas/Electric Bills: No Difficulty Paying for Meds: No Currently Unemployed: No Education: Master's Degree or Higher Difficulty w/ Childcare or Family Care: No Spiritual care concerns: No Comments At the time of my signature, I reviewed and agree with the nursing past medical, surgical, social, and family history. There is no relevant family history pertinent to the patient complaint. Exam Narrative: General: Well-developed, well nourished, very anxious at the time of exam Head: Normocephalic, atraumatic Eyes: Pupils equally round and reactive to light bilaterally, EOM intact, sclera and conjunctive clear, no discharge, lids normal Ears: TMs intact and clear, ear canals clear, no drainage, grossly hearing normal. Nose: Nares patent, clear nasal discharge, mild inflammation, no sinus tenderness. Mouth: Oral pharynx red without lesions or masses, good dentition, MMM. Nec
[2023-06-03 14:24] VITALS: PULSE 125; RESP 20; TEMP 36.7; O2SAT 98
--- NOTE | 2023-06-03 15:59 | ECG_ITS ---
Measurements Intervals [place] Rate: 112 P: 80 CA: 125 QRS: 60 QRSD: 92 T: 16 QT: 370 QTc: 505 Interpretive Statements SINUS TACHYCARDIA NONSPECIFIC ST & T-WAVE ABNORMALITY ABNORMAL RHYTHM ECG COMPARED TO ECG 07/08/2022 16:56:18 SINUS TACHYCARDIA NOW PRESENT T-WAVE ABNORMALITY NOW PRESENT Electronically Signed On 06-04-2023 8:53:13 SEAM TAPER MACHINE by Mame Martel M.D.
== END 2023-06-03 15:05 | disposition short-term general hospital (02) ==
PROVIDERS: Emergency Provider Nurse Practitioner Family; PCP Internal Medicine
DX: R11.2 Nausea with vomiting, unspecified (principal); R19.7 Diarrhea, unspecified; R07.9 Chest pain, unspecified; R20.2 Paresthesia of skin; I25.10 Atherosclerotic heart disease of native coronary artery without angina pectoris; I25.2 Old myocardial infarction; I10 Essential (primary) hypertension; Z87.891 Personal history of nicotine dependence; Z20.822 Contact with and (suspected) exposure to COVID-19
CPT/HCPCS: 87081; 87426; 87804; 87880; 93005; 99213; C9803; G0463

== ENCOUNTER 2023-06-03 17:41 | Emergency (ER) | payer OTHER, SELFPAY ==
[2023-06-03] VITALS (19 sets, daily range): BP systolic 137–141; BP diastolic 89–93; PULSE 88–100; RESP 12–20; TEMP 36.5; O2SAT 99–100
--- NOTE | 2023-06-03 17:45 | ECG_ITS ---
Measurements Intervals [place] Rate: 97 P: 71 IA: 104 QRS: 53 QRSD: 93 T: 41 QT: 373 QTc: 475 Interpretive Statements SINUS RHYTHM WITH SHORT IA INTERVAL COMPARED TO ECG 06/03/2023 14:46:03 SINUS RHYTHM NOW PRESENT Electronically Signed On 06-04-2023 8:59:17 CELLULAR EQUIPMENT REPAIRER by Mame Martel M.D.
--- NOTE | 2023-06-03 20:12 | ED.GENADULT ---
HPI - General Adult General Chief complaint: Nausea/Vomiting/Diarrhea Stated complaint: Vomiting, Diarrhea Time Seen by Provider: 06/03/23 19:59 History of Present Illness HPI narrative: 37-year-old male with history of [place] per patient of nausea vomiting and diarrhea. Patient states symptoms have been ongoing for the last few days. Patient did have follow-up with urgent care and patient was encouraged to have close follow-up in the emergency department. Patient states that he has not been having chest pain but has been having increased heart rate with this. Patient denies any associated abdominal pain. Related Data Home Medications Medication Instructions Recorded Confirmed albuterol sulfate 90 mcg/actuation 2 puff inhalation Q6H PRN 07/08/22 03/03/23 aerosol inhaler Shortness Of Breath Or Wheezing hydroxyzine HCl 25 mg tablet 25 mg PO QID PRN Anxiety 07/08/22 03/03/23 valsartan 320 mg tablet 320 mg PO DAILY 07/08/22 03/03/23 venlafaxine 75 mg capsule,extended 75 mg PO DAILY 07/08/22 03/03/23 release 24 hr clopidogrel 75 mg tablet (Plavix) 75 mg PO DAILY 03/03/23 03/03/23 fluticasone fur. 100 mcg-umeclid 1 inh inhalation DAILY 03/03/23 03/03/23 62.5 mcg-vilant 25 mcg inhalat.powder (Trelegy Ellipta) hydrochlorothiazide 25 mg tablet 25 mg PO DAILY 03/03/23 03/03/23 rosuvastatin 10 mg tablet (Crestor) 40 mg PO QAM 05/12/23 Allergies Allergy/AdvReac Type Severity Reaction Status Date / Time No Known Allergies Allergy Verified 05/12/23 14:05 Review of Systems Review of Systems: All systems reviewed & are unremarkable except as noted in HPI and below PMFSH Past Medical History Medical History Abdominal cramping BRBPR (bright red blood per rectum) CAD (coronary artery disease) Chronic diarrhea Elevated ALT measurement Hypertension Irritable bowel syndrome with diarrhea Obesity Family History Family History Father Acute myocardial infarction Congestive heart failure CAD (coronary artery disease) of artery bypass graft Mother Asthma Social History Social History Smoking packs per day: 0.25 Smoking cigarettes per day: 5.0 Years smoked: 5 Smoking pack-years: 1.25 Smoking status: Former smoker Tobacco type: cigarettes Smoking end date: 06/13/13 Additional smoking assessment comments: states he robin uses marajuana Alcohol intake: current Drinks per week: 10 Substance use: current Substance use type: marijuana Last use: 07/07/2022 Lack of Transportation: No Lack of Food: Never True Current Housing: I Have Housing Concerned About Future Housing: No Difficulty Paying Gas/Electric Bills: No Difficulty Paying for Meds: No Currently Unemployed: No Education: Master's Degree or Higher Difficulty w/ Childcare or Family Care: No Spiritual care concerns: No Exam Narrative: APPEARANCE: Ill-appearing HEAD: normocephalic, atraumatic. EYES: PERRLA/EOMI, conjunctivae clear. NOSE: Normal no drainage EARS:TMS clear with good light reflex. THROAT: Pharynx clear, no exudate. NECK: Supple. No adenopathy, no masses. RESPIRATORY: Airway patent, respirations nonlabored. Clear to auscultation bilaterally, no rales, rhonchi, wheezing. CARDIOVASCULAR: Regular rate and rhythm without murmurs rubs or gallops. ABDOMINAL: Soft, nontender, nondistended, normal bowel sounds MUSCULOSKELETAL: Moves all extremities. Strength/ROM intact, No edema, No calf tenderness. NEURO: Alert. Cranial nerves II through XII intact. Grossly intact SKIN: Warm, dry. Normal Color Course Course Emergency Course: 37-year-old male presenting to the emergency department for evaluation for nausea vomiting diarrhea. Patient is afebrile with no leukocytosis and a stable hemoglobin of 15.3. Patient's potassium was
[2023-06-03] MEDS: SODIUM CHLORIDE 0.9% IV 1,000 ML 999 ML IV CONT ×2 (20:46→21:32)
[2023-06-03] MEDS: LORazepam INJ (*CRX) 2 MG/ML VIAL 0.5 MG IV PUSH (20:49)
[2023-06-03 21:07] LABS: Basophils Percent Auto 0.3 % (0.2-1.2); Hematocrit 43.8 % (42.0-52.0); Hemoglobin 15.3 g/dL (14.0-18.0); Immature Granulocyte Absolute 0.03 K/mm3 (0.00-0.031); Immature Granulocyte Percent A 0.4 % (0-0.5); Lymphocytes Absolute Auto 0.85 K/mm3 (0.9-3.2); Mean Corpuscular HGB Conc 34.9 g/dl (32-36); Mean Corpuscular Volume 94.4 fl (80-100); Monocytes Absolute Auto 0.6 K/mm3 (0.1-0.6); Monocytes Percent Auto 8.2 % (2.6-8.5); Neutrophils Absolute Auto 5.6 K/mm3 (1.3-6.7); Neutrophils Percent Auto 79.1 % (45.5-73.1); Platelet Count Result 193 k/mm3 (150-375); Red Blood Count 4.64 M/mm3 (4.6-6.20); Red Cell Distribution Width 12.5 % (11.5-14.5); White Blood Count 7.1 K/mm3 (4.5-10.0)
[2023-06-03 21:16] LABS: Alanine Aminotransferase 96 U/L (6-50); Albumin Level 4.7 g/dL (3.5-5.1); Alkaline Phosphatase 71 U/L (38-126); Anion Gap 17 mmol/L (8-16); Aspartate Amino Transferase 164 U/L (17-59); Blood Urea Nitrogen 27 mg/dL (9-20); Calcium 9.4 mg/dL (8.4-10.2); Carbon Dioxide 22 mmol/L (22-30); Chloride 93 mmol/L (98-107); Estimated CRCL calculation 88 ml/min; Estimated Glomerular Filt Rate > 60; Glucose 131 mg/dL (65-110); Lipase 44 U/L (23-300); Magnesium 1.9 mg/dL (1.6-2.3); Potassium 2.9 mmol/L (3.4-5.0); Sodium 132 mmol/L (137-145)
[2023-06-03 21:17] LABS: Lactic Acid Reflex 2.3 mmol/L (0.7-2.0)
[2023-06-03 21:27] LABS: Troponin I < 0.012 ng/mL (0.000-0.034)
[2023-06-03 21:31] LABS: Strep Group A RT-PCR NOT DETECTED (Negative)
[2023-06-03] MEDS: POTASSIUM CHLORIDE 20 MEQ PACKET (FOR LIQUID) 40 MEQ PO (21:32)
[2023-06-03 21:42] LABS: Influenza A QL RT-PCR Negative (Negative); Influenza B QL RT-PCR Negative (Negative); RSV RNA, RT-PCR Negative (Negative); SARS-CoV-2 RNA PCR Negative (Negative)
[2023-06-03 23:48] LABS: Appearance Urine Clear (Clear); Bacteria Urine None Seen /hpf; Bilirubin Urine Negative (Negative); Blood Urine Negative (Negative); Color Urine Yellow (Yellow); Glucose Urine UA Negative (Negative); Ketones Urine Negative (Negative); Leukocyte Esterase Ur Negative LEU/UL (Negative); Nitrate Urine Negative (Negative); Non Pathogenic Casts 0-2; Protein Urine Trace mg/dL (Negative); RBC Urine 0-2 /hpf (0-2); Specific Grav Ur 1.011 (1.001-1.035); Squamous Epithelial Cell Urine None seen /hpf (Few); WBC Urine 0-5 /hpf; pH Urine 8.5 (5.0-9.0)
[2023-06-03 23:55] LABS: Add Urine Microscopic? YES
[2023-06-04] VITALS (7 sets, daily range): BP systolic 137–138; BP diastolic 92–93; PULSE 90–98; RESP 12–17; O2SAT 98–99
[2023-06-04 00:02] LABS: Reflex Lactic Acid Yes or No Add Lactic
[2023-06-04 00:27] LABS: Troponin I < 0.012 ng/mL (0.000-0.034)
[2023-06-04 00:57] LABS: Lactic Acid 1.2 mmol/L (0.7-2.0)
== END 2023-06-04 01:37 | disposition home or self-care (01) ==
PROVIDERS: Emergency Provider Emergency Medicine; PCP Internal Medicine
DX: R11.2 Nausea with vomiting, unspecified (principal); Z20.822 Contact with and (suspected) exposure to COVID-19; I25.2 Old myocardial infarction; I25.10 Atherosclerotic heart disease of native coronary artery without angina pectoris; I10 Essential (primary) hypertension; K58.0 Irritable bowel syndrome with diarrhea; E66.9 Obesity, unspecified; Z68.30 Body mass index [BMI] 30.0-30.9, adult; Z87.891 Personal history of nicotine dependence; Z79.82 Long term (current) use of aspirin
CPT/HCPCS: 36415; 80053; 81001; 83605; 83690; 83735; 84484; 85025; 87081; 87426; 87637; 87651; 87804; 87880; 93005; 96361; 96374; 99284; A9270; J2060; J7030

== ENCOUNTER 2023-08-24 16:24 | Outpatient (CLI) | payer OTHER, SELFPAY ==
[2023-08-24 17:11] LABS: Alanine Aminotransferase 93 U/L (6-50); Albumin Level 4.7 g/dL (3.5-5.1); Alkaline Phosphatase 61 U/L (38-126); Anion Gap 7 mmol/L (8-16); Aspartate Amino Transferase 116 U/L (17-59); Bilirubin,Total 0.6 mg/dL (0.2-1.3); Blood Urea Nitrogen 19 mg/dL (9-20); Calcium 9.6 mg/dL (8.4-10.2); Carbon Dioxide 31 mmol/L (22-30); Chloride 101 mmol/L (98-107); Cholesterol 148 mg/dL (0-200); Estimated Glomerular Filt Rate > 60; Glucose 105 mg/dL (65-110); HDL Direct 46 mg/dL; Potassium 3.8 mmol/L (3.4-5.0); Sodium 139 mmol/L (137-145); Triglycerides 186 mg/dL (<150)
[2023-08-24 17:23] LABS: LDL Cholesterol Direct 90 mg/dL
== END 2023-08-24 16:25 | disposition home or self-care (01) ==
LOC: ANHLAB 16:27
PROVIDERS: PCP Internal Medicine; Visit Provider Internal Medicine
DX: Z00.01 Encounter for general adult medical examination with abnormal findings (principal); I10 Essential (primary) hypertension; R07.89 Other chest pain; R94.31 Abnormal electrocardiogram [ECG] [EKG]; I25.82 Chronic total occlusion of coronary artery; E78.2 Mixed hyperlipidemia; K58.0 Irritable bowel syndrome with diarrhea; J45.30 Mild persistent asthma, uncomplicated; R19.7 Diarrhea, unspecified; R94.5 Abnormal results of liver function studies; K62.5 Hemorrhage of anus and rectum; J45.990 Exercise induced bronchospasm; L25.5 Unspecified contact dermatitis due to plants, except food; F41.1 Generalized anxiety disorder; F33.2 Major depressive disorder, recurrent severe without psychotic features; F51.04 Psychophysiologic insomnia; Z09 Encounter for follow-up examination after completed treatment for conditions other than malignant neoplasm
CPT/HCPCS: 36415; 80053; 80061

== ENCOUNTER 2023-12-06 16:28 | Outpatient (CLI) | payer OTHER, SELFPAY ==
[2023-12-06 17:04] LABS: Basophils Absolute Auto 0.1 K/mm3 (0.0-0.1); Basophils Percent Auto 1.6 % (0.2-1.2); Eosinophils Absolute Auto 0.2 K/mm3 (0-0.3); Eosinophils Percent Auto 2.3 % (0-4.4); Hematocrit 44.1 % (42.0-52.0); Hemoglobin 15.8 g/dL (14.0-18.0); Immature Granulocyte Absolute 0.02 K/mm3 (0.00-0.031); Immature Granulocyte Percent A 0.3 % (0-0.5); Lymphocytes Absolute Auto 1.98 K/mm3 (0.9-3.2); Lymphocytes Percent Auto 27.9 % (18.3-44.2); Mean Corpuscular HGB Conc 35.8 g/dl (32-36); Mean Corpuscular Hemoglobin 34.3 pg (26-34); Mean Corpuscular Volume 95.9 fl (80-100); Mean Platelet Volume 10.5 fl (7.4-10.4); Monocytes Absolute Auto 0.5 K/mm3 (0.1-0.6); Monocytes Percent Auto 7.3 % (2.6-8.5); Neutrophils Absolute Auto 4.3 K/mm3 (1.3-6.7); Neutrophils Percent Auto 60.6 % (45.5-73.1); Platelet Count Result 189 k/mm3 (150-375); Red Cell Distribution Width 13.2 % (11.5-14.5); White Blood Count 7.1 K/mm3 (4.5-10.0)
[2023-12-06 17:15] LABS: Alanine Aminotransferase 74 U/L (6-50); Albumin Level 4.8 g/dL (3.5-5.1); Alkaline Phosphatase 59 U/L (38-126); Anion Gap 8 mmol/L (4-12); Aspartate Amino Transferase 77 U/L (17-59); Bilirubin,Total 0.5 mg/dL (0.2-1.3); Blood Urea Nitrogen 16 mg/dL (9-20); Calcium 9.7 mg/dL (8.4-10.2); Carbon Dioxide 27 mmol/L (22-30); Chloride 104 mmol/L (98-107); Cholesterol 139 mg/dL (0-200); Creatine Kinase 167 U/L (55-170); Estimated Glomerular Filt Rate > 60; Glucose 99 mg/dL (65-110); HDL Direct 52 mg/dL; Potassium 4.2 mmol/L (3.4-5.0); Sodium 139 mmol/L (137-145); Triglycerides 236 mg/dL (<150)
[2023-12-06 17:26] LABS: LDL Cholesterol Direct 75 mg/dL
[2023-12-06 17:42] LABS: Erythrocyte Sedimentation Rate 13 mm/hr (0-20)
== END 2023-12-06 16:29 | disposition home or self-care (01) ==
LOC: ANHLAB 16:30
PROVIDERS: PCP Internal Medicine; Visit Provider Internal Medicine
DX: Z00.01 Encounter for general adult medical examination with abnormal findings (principal); M10.2 Drug-induced gout; J45.990 Exercise induced bronchospasm; L25.5 Unspecified contact dermatitis due to plants, except food; F41.1 Generalized anxiety disorder; F33.2 Major depressive disorder, recurrent severe without psychotic features; I10 Essential (primary) hypertension; R07.89 Other chest pain; R94.31 Abnormal electrocardiogram [ECG] [EKG]; F51.04 Psychophysiologic insomnia; I25.10 Atherosclerotic heart disease of native coronary artery without angina pectoris; I25.82 Chronic total occlusion of coronary artery; E78.2 Mixed hyperlipidemia; K58.0 Irritable bowel syndrome with diarrhea; J45.30 Mild persistent asthma, uncomplicated; R19.7 Diarrhea, unspecified; K62.5 Hemorrhage of anus and rectum; R94.5 Abnormal results of liver function studies; Z09 Encounter for follow-up examination after completed treatment for conditions other than malignant neoplasm
CPT/HCPCS: 36415; 80053; 80061; 82550; 84439; 84443; 85025; 85652

== ENCOUNTER 2024-02-15 16:55 | Outpatient (CLI) | payer OTHER, SELFPAY ==
[2024-02-15 17:58] LABS: Basophils Absolute Auto 0.1 K/mm3 (0.0-0.1); Basophils Percent Auto 0.9 % (0.2-1.2); Eosinophils Absolute Auto 0.1 K/mm3 (0-0.3); Eosinophils Percent Auto 1.3 % (0-4.4); Hematocrit 46.9 % (42.0-52.0); Hemoglobin 16.4 g/dL (14.0-18.0); Immature Granulocyte Absolute 0.02 K/mm3 (0.00-0.031); Immature Granulocyte Percent A 0.3 % (0-0.5); Lymphocytes Absolute Auto 2.26 K/mm3 (0.9-3.2); Lymphocytes Percent Auto 33.9 % (18.3-44.2); Mean Corpuscular Volume 97.1 fl (80-100); Mean Platelet Volume 10.7 fl (7.4-10.4); Monocytes Absolute Auto 0.6 K/mm3 (0.1-0.6); Monocytes Percent Auto 9.1 % (2.6-8.5); Neutrophils Absolute Auto 3.6 K/mm3 (1.3-6.7); Neutrophils Percent Auto 54.5 % (45.5-73.1); Platelet Count Result 261 k/mm3 (150-375); Red Blood Count 4.83 M/mm3 (4.6-6.20); Red Cell Distribution Width 12.4 % (11.5-14.5); White Blood Count 6.7 K/mm3 (4.5-10.0)
[2024-02-15 18:07] LABS: Anion Gap 10 mmol/L (4-12); Blood Urea Nitrogen 15 mg/dL (9-20); Calcium 10.7 mg/dL (8.4-10.2); Carbon Dioxide 33 mmol/L (22-30); Chloride 97 mmol/L (98-107); Estimated Glomerular Filt Rate > 60; Glucose 89 mg/dL (65-110); Sodium 140 mmol/L (137-145)
== END 2024-02-15 16:56 | disposition home or self-care (01) ==
LOC: ANHLAB 16:58
PROVIDERS: PCP Internal Medicine; Visit Provider Internal Medicine
DX: I25.118 Atherosclerotic heart disease of native coronary artery with other forms of angina pectoris (principal)
CPT/HCPCS: 36415; 80048; 85025

== ENCOUNTER 2025-01-12 17:22 | Emergency (ER) | payer OTHER, SELFPAY ==
--- NOTE | ~2025-01-12 | XR_ITS ---
EXAMINATION: XR chest 2V Exam Date/Time: 01/12/2025 17:55 CDT HISTORY: cp Comparison: 07/08/2022. RESULT: Lines, tubes, and devices: Coronary stenting. Lungs and pleura: Clear. Cardiomediastinal silhouette: Stable. Other: No acute osseous or upper abdominal finding. IMPRESSION: No acute cardiopulmonary process. Reviewed, dictated and finalized at location K.
--- NOTE | ~2025-01-12 | CT_ITS ---
EXAMINATION: CT brain wo con DATE: 01/12/2025 18:52 INDICATION: headache . TECHNIQUE: Computed tomography (CT) of the head was performed without intravenous contrast. The mA wa s adjusted according to patient size. Iterative reconstruction technique was employed. The dose-lengt h product was 605.33 mGy-cm. COMPARISON: None. FINDINGS: No acute intracranial hemorrhage or extra-axial fluid collection. No hydrocephalus, mass, or herniation. No acute ischemic infarct. Unremarkable dural venous sinus attenuation. No acute osseous abnormality. Right mastoid fluid, right maxillary retention cyst/polyp, the remaining aerated spaces are clear. IMPRESSION: No acute intracranial process. Reviewed, dictated and finalized at location K.
[2025-01-12 17:22] VITALS: BP 175/100; PULSE 81; RESP 16; TEMP 36.4; O2SAT 100
--- OUTSIDE RECORDS SUMMARY | 2025-01-12 17:24 | XMS_ITS | Referral Summary ---
Author Organization [facility] [address] Address [address] [place] [address] Care Team Providers Care Billing Machine Operator Name Role Phone Kahlil Nichols MD Primary Care Provider + Kahlil Nichols MD Unavailable [phone] Fahad Flynn MD Unavailable [phone] Allergies No known active allergies Medications aspirin 81 mg enteric coated tablet Take 1 tablet (81 mg total) by mouth daily 07/10/2022 Active venlafaxine XR (EFFEXOR-XR) 75 mg 24 hr capsule daily 07/13/2022 Active metoprolol XL (TOPROL-XL) 100 mg 24 hr tablet Take 1 tablet (100 mg total) by mouth every morning 07/10/2022 Active valsartan (DIOVAN) 320 mg tablet daily 05/23/2022 Active rosuvastatin calcium (ROSUVASTATIN ORAL) Take 40 mg by mouth every morning 07/10/2022 Active albuterol HFA (PROVENTIL HFA,VENTOLIN HFA,PROAIR HFA) 90 mcg/actuation inhaler 4 (four) times a day as needed 07/13/2022 Active Spiriva Respimat 2.5 mcg/actuation inhaler 07/14/2022 Active hydrOXYzine (ATARAX) 25 mg tablet as needed 07/13/2022 Active nitroglycerin (NITROSTAT) 0.4 mg SL tablet ONE TABLET UNDER TONGUE NEEDED FOR CHEST PAIN EVERY 5 MINUTES UP TO 3 TIMES 07/10/2022 Active hyoscyamine ER (LEVBID) 0.375 mg 12 hr tablet Take 1 tablet (375 mcg total) by mouth every 12 (twelve) hours 03/03/2023 Active Trelegy Ellipta 100-62.5-25 mcg inhaler Inhale 1 puff daily 03/02/2023 Active rosuvastatin (CRESTOR) 40 mg tablet 08/08/2023 Active predniSONE (DELTASONE) 10 mg tabletIndicatio ns:Gout Take 4 tabs (40 mg) days 1 & 2, 3 tabs (30 mg) days 3 & 4, 2 tab (20 mg) days 5-7, 1 tab (10 mg) days 8-9. Take with food. 13 tablet 08/29/2023 Active indapamide (LOZOL) 2.5 mg tablet Take 1 tablet (2.5 mg total) by mouth daily 08/30/2023 Active clopidogreL (PLAVIX) 75 mg tablet TAKE 1 TABLET(75 MG) BY MOUTH DAILY 90 tablet 3 09/03/2024 Active Active Problems Problem Noted Date Diagnosed Date Status post insertion of drug eluting coronary a rtery stent 12/08/2022 Chest pain 07/28/2022 Overview (07/28/2022): Added automatically from request for surgery [id number] Coronary artery disease of n ative artery of [place] heart with stable angina pectoris 07/27/2022 Social History Tobacco Use Types Packs/Day Years Used Date Smoking Tobacco: Never Smokeless Tobacco: Never Tobacco Cessation:Counseling Given: Not Answered AUDIT-C Answer Date Recorded Q1: How often do you have a drink containing alc ohol? 2-3 times a week 02/17/2024 Q2: How many drinks containi ng alcohol do you have on a typical day when you are drinking? 3 or 4 02/17/2024 Q3: How often do you have si x or more drinks on one occasion? Weekly 02/17/2024 Personal Safety Answer Date Recorded Have you ever been in or are you currently in a harmful physical or emotional relationship or is someone making you feel afraid or unsafe? 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 Gender Identity Not on file Sexual Orientation Not on file Last Filed Vital Signs Vital Sign Reading Time Taken Comments Blood Pressure 133/86 02/17/2024 12:25 PM CDT Pulse 72 02/17/2024 12:25 PM CDT Temperature 36.8 C (98.2 F) 02/17/2024 7:16 AM CDT Respiratory Rate 22 02/17/2024 12:25 PM CDT Oxygen Saturation 98% 02/17/2024 12:25 PM CDT Inhaled Oxygen Concentration - - Weight 94.1 kg (207 lb 7.3 oz) 02/17/2024 7:16 A M CDT Height 172.7 cm (5' 8) 02/17/2024 7:16 AM CDT Body Mass Index 31.54 02/17/2024 7:16 AM CDT Plan of Treatment Not on file Medical Devices Implanted Type Area Stull Hewer Device Identifier Shelf Expiration Date Model / Serial / Lot Terumo Medical Tan Angio-Seal Vip Bondek-Plus 8fr .038in 70cm Hemostatic Latex Free [id number] - [id number] - [id number] Implanted:Qty : 1 on 11/12/2022 by Musa Rivera MD PhD at [facility] Collagen Terumo Medical Tan 07/13/2023 [id number] / [id number] / [id number] Terumo Medical Tan Angio-Seal Vip 6fr Closere Device 176328 - [id number] - [id number] Implanted:Qty : 1 on 11/12/2022 by Musa Rivera MD PhD at [facility] Collagen Terumo Medical Tan 06/12/2023 [id number] / [id number] / [id number] Terumo Medical Tan Angio-Seal Vip 6fr Closere Device 739482 - [id number] - [id number] Implanted:Qty : 1 on 02/17/2024 by Andrew Bartholomew MD at [facility] Collagen Right: Common Femoral Artery Terumo Medical Tan 10/06/2024 [id number] / [id number] / [id number] [place] Scientific Tan Synergy Xd Monorail 2.5mm 48mm 144cm Delivery System 1 Access [id number] - [id number] - [id number] Implanted:Qty : 1 on 11/12/2022 by Musa Rivera MD PhD at [facility] Stent [place] Scientific Tan 08/19/2023 [id number] / [id number] / [id number] [employer] Scientific Tan Stent Drug Eluting S Megatron Us Mr 3.07r57zo [id number] 0 - [id number] - [id number] Implanted:Qty : 1 on 11/12/2022 by Musa Rivera MD PhD at [facility] Stent [employer] [employer] Tan 03/31/2023 [id number] / [id number] / [id number] [employer] Tan Stent Drug Eluting S Megatron Us Mr 3.85h96op [id number] - [id number] - [id number] Implanted:Qty : 1 on 11/12/2022 by Musa Rivera MD PhD at [facility] Stent [employer] [employer] Tan 02/02/2023 [id number] / [id number] / [id number] Biotronik Inc Stent Coronary De Rx Cocr Ors Msn 2.5x40mm 267056 - [id number] - [id number] Implanted:Qty : 1 on 02/17/2024 by Musa Rivera MD PhD at [facility] Stent Left: Anterior Descending Cornary Artery Biot[employer]ik Inc 10/01/2025 [id number] / [id number] / [id number] Terumo Medical Tan Angio-Seal Vip Bondek-Plus 8fr .038in 70cm Hemostatic Latex Free 404831 - [id number] - [id number] Implanted:Qty : 1 on 08/16/2022 by Davian Hilliard MD at [facility] Vascular Closure Device Right: Groin Terumo Medical Tan 02/10/2023 [id number] / [id number] / [id number] Terumo Medical Tan Angio-Seal Vip Bondek-Plus 8fr .038in 70cm Hemostatic Latex Free 079628 - [id number] - [id number] Implanted:Qty : 1 on 08/16/2022 by Davian Hilliard MD at [facility] Vascular Closure Device Left: Groin Terumo Medical Tan 04/12/2023 [id number] / [id number] / [id number] Insurance Member Subscriber Plan / Payer (Ef fective 2022-Present) Name:Stephan Cisneros Relation to Subscriber:Self Name:Stephan Cisneros Payer ID:[id number] (NAIC) Group ID:[id number] Type:MEDICAID RISK OTHER Address: ATTN: CLAIMS DEPT [address] [place] [id number] [facility] Advance Directives For more information, please contact: [phone] * Full Code (Latest Code Status on File) Date Activated Date Inactivated Comments 02/17/2024 10:11 AM 02/17/2024 6:20 PM * Full Code Date Activated Date Inactivated Comments 11/12/2022 4:32 PM 11/12/2022 11:12 PM * Full Code Date Activated Date Inactivated Comments 08/16/2022 4:00 PM 08/16/2022 10:32 PM Care Teams Billing Machine Operator Relationship Specialty Start Date End Date Kahlil Nichols MD [address] [place] [address] PCP - General Internal Medicine 07/12/22 Kahlil Nichols MD [address] [place] [address] Internal Medicine 07/12/22 Fahad Flynn MD [address] [address] (work) Consulting Physician Cardiology 07/12/22
--- OUTSIDE RECORDS SUMMARY | 2025-01-12 17:24 | XMS_ITS | Clinical Summary ---
Author Organization [facility] Address [facility] [place] [address] Care Team Providers Care Eyeglass Frame Truer Name Role Phone Unavailable Primary Care Provider Unavailabl e Social History Tobacco Use Types Packs/Day Years Used Date Smoking Tobacco: Never Assessed Sex and Gender Information Value Date Recorded Sex Assigned at Not on file Legal Sex Male 6:22 PM CDT Gender Identity Not on file Sexual Orientation Not on file Plan of Treatment Health Maintenance Due Date Last Done Comments Annual Physical 1986 Hepatitis C 2001 DTaP, Tdap and Td Vaccines ( 1 - Tdap) 2002 Hepatitis B Vaccines (1 of 3 - 19+ 3-dose series) 2002 HPV Vaccines (1 - 3-dose SCD M series) 2010 COVID-19 Vaccine (2023-2 5 season) 2024 Meningococcal B Vaccine Aged Out No l onger eligible based on patient's age to complete this topic Meningococcal Vaccine Aged Out No kameron ronald eligible based on patient's age to complete this topic Pneumococcal Vaccine: Pediat rics (0 to 5 Years) and At-Risk Patients (6 to 49 Years) Aged Out No longer eligible b ased on patient's age to complete this topic RSV Immunizations Under 20 Months Aged Out No longer eligible based on patient's age to complete this topic
--- OUTSIDE RECORDS SUMMARY | 2025-01-12 17:24 | XMS_ITS | Clinical Summary ---
Author Organization [facility] [address] Address [address] [place] [address] Care Team Providers Care Appliance Worker Name Role Phone Kahlil Nichols MD Primary Care Provider + Kahlil Nichols MD Unavailable [phone] Fahad Flynn MD Unavailable [phone] Allergies No known active allergies Medications aspirin [...] (07/28/2022): Added automatically from request for surgery [id number] Coronary artery disease of n ative artery of [place] heart with stable angina pectoris 07/27/2022 Surgical History Surgery Date Site/Laterality Comments CARDIAC CATHETERIZATION failed PCI 08-16-2022 Medical History Medical History Date Comments NSTEMI (non-ST elevated myocardial infarction) ( HCC) High blood pressure Hypertension Coronary artery disease [place] (myocardial infarction) (HCC) Hyperlipidemia Asthma Family History Medical History Relation Name Comments Heart attack Father Heart failure Father Asthma Mother Heart failure Other Relation Name Status Comments Father Mother Other Social History Tobacco Use Types Packs/Day Years [...] on file 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 Gender Identity Not on file Sexual Orientation Not on file Obstetrics History Last Filed Vital Signs Vital Sign Reading [...] 02/17/2024 7:16 AM CDT Plan of Treatment Health Maintenance Due Date Last Done Comments Depression Screening 1983 Hepatitis C Screening 1983 DTaP/Tdap/Td Vaccine (1 - Tdap) 1994 Varicella Vaccines (1 of 2 - 13+ 2-dose series) 1996 Hepatitis B Screening 2001 Regular Well Visit/Exam 18-64 2001 Pneumococcal vaccine <65 (1 of 2 - PCV) 2002 HPV Vaccines (1 - 3-dose SCDM series) 2010 Influenza Vaccine (#1) 2025 Medical Devices Implanted Type Area Extruder Operator Vertical Device Identifier Shelf Expiration Date Model / Serial / Lot MelodigramumMangrove Systems Medical Tan Angio-Seal Vip Bondek-Plus 8fr .038in 70cm Hemostatic Latex Free 958454 - [id number] - [id number] Implanted:Qty : 1 on 11/12/2022 by Musa Rivera MD PhD at [facility] Collagen Terumo Medical Tan 07/13/2023 [id number] / [id number] / [id number] Terumo Medical Tan Angio-Seal Vip 6fr Closere Device 981980 - [id number] - [id number] Implanted:Qty : 1 on 11/12/2022 by Musa Rivera MD PhD at [facility] Collagen Terumo Medical Tan 06/12/2023 [id number] / [id number] / [id number] Terumo Medical Tan Angio-Seal Vip 6fr Closere Device 162301 - [id number] - [id number] Implanted:Qty : 1 on 02/17/2024 by Andrew Bartholomew MD at [facility] Collagen Right: Common Femoral Artery Terumo Medical Tan 10/06/2024 376591 / [id number] / [id number] [place] Scientific Tan Synergy Xd Monorail 2.5mm 48mm 144cm Delivery System 1 Access [id number] 0 - [id number] - [id number] Implanted:Qty : 1 on 11/12/2022 by Musa Rivera MD PhD at [facility] Stent [place] [employer] Tan 08/19/2023 [id number] / [id number] / [id number] [employer] [employer] Tan Stent Drug Eluting S Megatron Us Mr 3.73d71wd [id number] 0 - [id number] - [id number] Implanted:Qty : 1 on 11/12/2022 by Musa Rivera MD PhD at [facility] Stent [place] [employer] Tan 03/31/2023 [id number] [id number] / [id number] / [id number] [employer] [employer] Tan Stent Drug Eluting S Megatron Us Mr 3.08h05pi [id number] 0 - [id number] - [id number] Implanted:Qty : 1 on 11/12/2022 by Musa Rivera MD PhD at [facility] Stent [place] [employer] Tan 02/02/2023 [id number] / [id number] / [id number] Biotronik Inc Stent Coronary De Rx Cocr Ors Msn 2.5x40mm 585231 - [id number] - [id number] Implanted:Qty : 1 on 02/17/2024 by Musa Rivera MD PhD at [facility] Stent Left: Anterior Descending Cornary Artery [employer] 10/01/2025 [id number] / [id number] / [id number] Terumo Medical Tan Angio-Seal Vip Bondek-Plus 8fr .038in 70cm Hemostatic Latex Free 512628 - [id number] - [id number] Implanted:Qty : 1 on 08/16/2022 by Davian Hilliard MD at [facility] Vascular Closure Device Right: Groin Terumo Medical Tan 02/10/2023 107042 / [id number] / [id number] Terumo Medical Tan Angio-Seal Vip Bondek-Plus 8fr .038in 70cm Hemostatic Latex Free 737802 - [id number] - [id number] Implanted:Qty : 1 on 08/16/2022 by Davian Hilliard MD at [facility] Vascular Closure Device Left: Groin Terumo Medical Tan 04/12/2023 625585 / [id number] / [id number] [place] [address] [facility] Advance Directives For more information, please contact: [phone] * Full Code (Latest Code Status on File) Date Activated Date Inactivated Comments 02/17/2024 10:11 AM 02/17/2024 6:20 PM * Full Code Date Activated Date Inactivated Comments 11/12/2022 4:32 PM 11/12/2022 11:12 PM * Full Code Date Activated Date Inactivated Comments 08/16/2022 4:00 PM 08/16/2022 10:32 PM Care Teams Appliance Worker Relationship Specialty Start Date End Date Kahlil Nichols MD [address] [facility] [address] [address] PCP - General Internal Medicine 07/12/22 Kahlil Nichols MD [address] [facility] [address] [address] Internal Medicine 07/12/22 Fahad Flynn MD [address] [place] [address] Consulting Physician Cardiology 07/12/22
--- NOTE | 2025-01-12 17:28 | ECG_ITS ---
Test Date: 2025-01-12 17:32:13 Measurements Intervals [place] Rate: 76 P: 55 WV: 137 QRS: 57 QRSD: 94 T: 25 QT: 388 QTc: 437 Interpretive Statements SINUS RHYTHM MINIMAL Q WAVES- INFERIOR LEADS BASELINE ARTIFACT- I, II, III, AVR, AVL, AVF, V1, V4-V5 BORDERLINE ECG No previous ECG available for comparison Electronically Signed On 01-12-2025 18:27:59 CDT by Volodymyr Bradley D.O.
[2025-01-12 17:48] LABS: Hematocrit 48.8 % (42.0-52.0); Hemoglobin 16.7 g/dL (14.0-18.0); Immature Granulocyte Percent A 0.2 % (0-0.5); Lymphocytes Absolute Auto 1.49 K/mm3 (0.9-3.2); Mean Corpuscular HGB Conc 34.2 g/dl (32-36); Mean Corpuscular Hemoglobin 33.1 pg (26-34); Mean Corpuscular Volume 96.8 fl (80-100); Nucleated Red Blood Cells Absolute Auto 0.000 K/mm3 (0.0-0.012); Nucleated Red Blood Cells Perc 0.0 % (0.0-0.2); Platelet Count Result 187 k/mm3 (150-375); Red Blood Count 5.04 M/mm3 (4.6-6.20); White Blood Count 5.9 K/mm3 (4.5-10.0)
[2025-01-12 17:59] LABS: INR 1.1; Partial Thromboplastin Time 25.7 Seconds (22.3-36.8); Prothrombin Time 14.0 Seconds (11.1-14.7)
[2025-01-12 18:07] LABS: Alanine Aminotransferase 119 U/L (6-50); Albumin Level 4.8 g/dL (3.5-5.1); Alkaline Phosphatase 71 U/L (38-126); Anion Gap 12 mmol/L (4-12); Aspartate Amino Transferase 136 U/L (17-59); Bilirubin,Total 0.7 mg/dL (0.2-1.3); Blood Urea Nitrogen 17 mg/dL (9-20); Calcium 9.6 mg/dL (8.4-10.2); Carbon Dioxide 25 mmol/L (22-30); Chloride 101 mmol/L (98-107); Estimated CRCL calculation 88 ml/min; Estimated Glomerular Filt Rate > 60; Glucose 152 mg/dL (65-110); Lipase 64 U/L (23-300); Potassium 3.6 mmol/L (3.4-5.0); Sodium 138 mmol/L (137-145); Total Protein 8.9 g/dL (6.3-8.2)
[2025-01-12 18:18] LABS: Troponin I < 0.012 ng/mL (0.000-0.034)
--- OUTSIDE RECORDS SUMMARY | 2025-01-12 18:31 | XMS_ITS | Clinical Summary ---
Author Organization [facility] [address] Address [address] [place] [address] Care Team Providers Care Flight Operations Dispatch Clerk Name Role Phone Kahlil Nichols MD Primary Care Provider + Kahlil Nichols MD Unavailable [phone] Fahad Flynn MD Unavailable [phone] Allergies No known active allergies Medications aspirin [...] (07/28/2022): Added automatically from request for surgery [id number] Coronary artery disease of n ative artery of [place] heart with stable angina pectoris 07/27/2022 Surgical History Surgery Date Site/Laterality Comments CARDIAC CATHETERIZATION failed PCI 08-16-2022 Medical History Medical History Date Comments NSTEMI (non-ST elevated myocardial infarction) ( HCC) High blood pressure Hypertension Coronary artery disease [place] (myocardial infarction) (HCC) Hyperlipidemia Asthma Family History [...] on file 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 Gender Identity Not on file Sexual Orientation [...] (#1) 2025 Medical Devices Implanted Type Area Trimming Cutter Machine Device Identifier Shelf Expiration Date Model / Serial / Lot PAYMILLumProteoGenix Medical Tan Angio-Seal Vip Bondek-Plus 8fr .038in 70cm Hemostatic Latex Free 838230 - [id number] - [id number] Implanted:Qty : 1 on 11/12/2022 by Musa Rivera MD PhD at [facility] Collagen Terumo Medical Tan 07/13/2023 551637 / [id number] / [id number] Terumo Medical Tan Angio-Seal Vip 6fr Closere Device 318202 - [id number] - [id number] Implanted:Qty : 1 on 11/12/2022 by Musa Rivera MD PhD at [facility] Collagen Terumo Medical Tan 06/12/2023 887931 / [id number] / [id number] Terumo Medical Tan Angio-Seal Vip 6fr Closere Device 198975 - [id number] - [id number] Implanted:Qty : 1 on 02/17/2024 by Andrew Bartholomew MD at [facility] Collagen Right: Common Femoral Artery Terumo Medical Tan 10/06/2024 [id number] / [id number] / [id number] [place] Scientific Tan Synergy Xd Monorail 2.5mm 48mm 144cm Delivery System 1 Access [id number] 0 - [id number] - [id number] Implanted:Qty : 1 on 11/12/2022 by Musa Rivera MD PhD at [facility] Stent [place] [employer] Tan 08/19/2023 [id number] / [id number] / [id number] [place] [employer] Tan Stent Drug Eluting S Megatron Us Mr 3.75g75ad [id number] 0 - [id number] - [id number] Implanted:Qty : 1 on 11/12/2022 by Musa Rivera MD PhD at [facility] Stent [place] [employer] Tan 03/31/2023 [id number] [id number] / [id number] / [id number] [place] [employer] Tan Stent Drug Eluting S Megatron Us Mr 3.57h89mp [id number] 0 - [id number] - [id number] Implanted:Qty : 1 on 11/12/2022 by Musa Rivera MD PhD at [facility] Stent [place] [employer] Tan 02/02/2023 [id number] [id number] / [id number] / [id number] Biotronik Inc Stent Coronary De Rx Cocr Ors Msn 2.5x40mm 291274 - [id number] - [id number] Implanted:Qty : 1 on 02/17/2024 by Musa Rivera MD PhD at [facility] Stent Left: Anterior Descending Cornary Artery [employer]ik Inc 10/01/2025 986549 / [id number] / [id number] Terumo Medical Tan Angio-Seal Vip Bondek-Plus 8fr .038in 70cm Hemostatic Latex Free 611552 - [id number] - [id number] Implanted:Qty : 1 on 08/16/2022 by Davian Hilliard MD at [facility] Vascular Closure Device Right: Groin Terumo Medical Tan 02/10/2023 972718 / [id number] / [id number] Terumo Medical Tan Angio-Seal Vip Bondek-Plus 8fr .038in 70cm Hemostatic Latex Free 574858 - [id number] - [id number] Implanted:Qty : 1 on 08/16/2022 by Davian Hilliard MD at [facility] Vascular Closure Device Left: Groin Terumo Medical Tan 04/12/2023 [id number] / [id number] / [id number] [place] [address] [address] [facility] Advance Directives For more information, please contact: [phone] * Full Code (Latest Code Status on File) Date Activated Date Inactivated Comments 02/17/2024 10:11 AM 02/17/2024 6:20 PM * Full Code Date Activated Date Inactivated Comments 11/12/2022 4:32 PM 11/12/2022 11:12 PM * Full Code Date Activated Date Inactivated Comments 08/16/2022 4:00 PM 08/16/2022 10:32 PM Care Teams Flight Operations Dispatch Clerk Relationship Specialty Start Date End Date Kahlil Nichols MD [address] [place] [address] PCP - General Internal Medicine 07/12/22 Kahlil Nichols MD [address] [place] [address] Internal Medicine 07/12/22 Fahad Flynn MD [address] [place] [address] Consulting Physician Cardiology 07/12/22
--- OUTSIDE RECORDS SUMMARY | 2025-01-12 18:31 | XMS_ITS | Referral Summary ---
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 Gender Identity Not on file Sexual Orientation [...] on file Medical Devices Implanted Type Area Tile Edger Device Identifier Shelf Expiration Date Model / Serial / Lot Terumo Medical Tan Angio-Seal Vip Bondek-Plus 8fr .038in 70cm Hemostatic Latex Free 378867 - [id number] - [id number] Implanted:Qty : 1 on 11/12/2022 by Musa Rivera MD PhD at [facility] Collagen Terumo Medical Tan 07/13/2023 912495 / [id number] 32 / [id number] Terumo Medical Tan Angio-Seal Vip 6fr Closere Device 821255 - [id number] - [id number] Implanted:Qty : 1 on 11/12/2022 by Musa Rivera MD PhD at [facility] Collagen Terumo Medical Tan 06/12/2023 876074 / [id number] / [id number] Terumo Medical Tan Angio-Seal Vip 6fr Closere Device 241442 - [id number] - [id number] Implanted:Qty : 1 on 02/17/2024 by Andrew Bartholomew MD at [facility] Collagen Right: Common Femoral Artery Terumo Medical Tan 10/06/2024 531557 / [id number] / [id number] [place] Scientific Tan Synergy Xd Monorail 2.5mm 48mm 144cm Delivery System 1 Access [id number] - [id number] - [id number] Implanted:Qty : 1 on 11/12/2022 by Musa Rivera MD PhD at [facility] Stent [place] [employer] Tan 08/19/2023 [id number] [id number] / [id number] / [id number] [place] [employer] Tan Stent Drug Eluting S Megatron Us Mr 3.44z26sq [id number] 0 - [id number] - [id number] Implanted:Qty : 1 on 11/12/2022 by Musa Rivera MD PhD at [facility] Stent [place] [employer] Tan 03/31/2023 [id number] / [id number] / [id number] [place] [employer] Tan Stent Drug Eluting S Megatron Us Mr 3.56w75am [id number] 0 - [id number] - [id number] Implanted:Qty : 1 on 11/12/2022 by Musa Rivera MD PhD at [facility] Stent [place] [employer] Tan 02/02/2023 [id number] 808986 / [id number] / [id number] Biotronik Inc Stent Coronary De Rx Cocr Ors Msn 2.5x40mm 492763 - [id number] - [id number] Implanted:Qty : 1 on 02/17/2024 by Musa Rivera MD PhD at [facility] Stent Left: Anterior Descending Cornary Artery [employer] Inc 10/01/2025 895748 / [id number] / [id number] Terumo Medical Tan Angio-Seal Vip Bondek-Plus 8fr .038in 70cm Hemostatic Latex Free 705906 - [id number] - [id number] Implanted:Qty : 1 on 08/16/2022 by Davian Hilliard MD at [facility] Vascular Closure Device Right: Groin Terumo Medical Tan 02/10/2023 827690 / [id number] / [id number] Terumo Medical Atn Angio-Seal Vip Bondek-Plus 8fr .038in 70cm Hemostatic Latex Free 327547 - [id number] - [id number] Implanted:Qty : 1 on 08/16/2022 by Davian Hilliard MD at [facility] Vascular Closure Device Left: Groin Terumo Medical Tan 04/12/2023 452961 / [id number] / [id number] Insurance Member Subscriber Plan / Payer (Ef fective 2022-Present) Name:Stephan Cisneros Relation to Subscriber:Self Name:Stephan Cisneros Payer ID:[id number] (NAIC) Group ID:[id number] Type:MEDICAID RISK OTHER Address: ATTN: CLAIMS DEPT [address] [place] [id number] [facility] Advance Directives For more information, please contact: [phone] * Full Code (Latest Code Status on File) Date Activated Date Inactivated Comments 02/17/2024 10:11 AM 02/17/2024 6:20 PM * Full Code Date Activated Date Inactivated Comments 11/12/2022 4:32 PM 11/12/2022 11:12 PM * Full Code Date Activated Date Inactivated Comments 08/16/2022 4:00 PM 08/16/2022 10:32 PM Care Teams Customer Data Technician Relationship Specialty Start Date End Date Kahlil Nichols MD [address] [facility] [place] [address] PCP - General Internal Medicine 07/12/22 Kahlil Nichols MD [address] [facility] [place] [address] Internal Medicine 07/12/22 Fahad Flynn MD [address] [address] (work) Consulting Physician Cardiology 07/12/22
--- OUTSIDE RECORDS SUMMARY | 2025-01-12 18:31 | XMS_ITS | Clinical Summary ---
Author Organization [facility] Address [facility] [place] [address] Care Team Providers Care Purchasing Engineer Name Role Phone Unavailable Primary Care Provider [...]
[2025-01-12 18:34] VITALS: BP 184/113; PULSE 78; RESP 11; O2SAT 98
[2025-01-12] MEDS: ASPIRIN 81 MG CHEWABLE TABLET 324 MG PO (18:34)
[2025-01-12] MEDS: ACETAMINOPHEN 500 MG TABLET 1000 MG PO (18:56)
[2025-01-12 19:00] VITALS: BP 169/103; PULSE 69; RESP 18; O2SAT 98
--- NOTE | 2025-01-12 19:25 | ED_ITS ---
HPI - Recheck/Abnormal Lab/Rx General Chief Complaint: Recheck/Abnormal Lab/Rx <Kwabena Alamo MD - Last Filed: 01/13/25 19:48> Stated Complaint: HTN <Kwabena Alamo MD - Last Filed: 01/13/25 19:48> Time Seen by Provider: 01/12/25 18:00 <Kwabena Alamo MD - Last Filed: 01/13/25 19:48> History of Present Illness HPI narrative: 39-year-old male with a history of coronary artery disease with stents in his right RCA for complete occlusion. He has a history of hypertension hyperlipidemia as well. Patient presents to the emergency department today with concerns of his blood pressure being elevated as well as a mild headache. States that he takes multiple blood pressure medications but for last week has been noncompliant with several doses specially is aspirin. Denies any chest pain or chest discomfort, no shortness a breath, abdominal pain, fever, chills. No traumatic injuries. No vision deficits and states that headache is like a tension type in a bandlike distribution around his head. Intermittent in nature but very mild in sensation. Not the worst headache of his life. Did not call his doctor and is not coordinated with his PCP about his blood pressure or his blood pressure regimen. He previously was on a blood pressure regimen that controlled at adequately and this was changed several months ago by his doctor. <Kwabena Alamo MD - Last Filed: 01/13/25 19:48> Related Data Home Medications: Home Medications ?Medication ?Instructions ?Recorded ?Confirmed ?Last Taken ?Type albuterol sulfate 90 mcg/actuation 2 puff inhalation Q6H PRN 07/08/22 03/03/23 Unknown History aerosol inhaler Shortness Of Breath Or Wheezing hydroxyzine HCl 25 mg tablet 25 mg PO QID PRN Anxiety 07/08/22 03/03/23 Unknown History valsartan 320 mg tablet 320 mg PO DAILY 07/08/22 03/03/23 07/08/22 History venlafaxine 75 mg capsule,extended 75 mg PO DAILY 07/08/22 03/03/23 07/08/22 History release 24 hr clopidogrel 75 mg tablet (Plavix) 75 mg PO DAILY 03/03/23 03/03/23 Unknown History fluticasone fur. 100 mcg-umeclid 1 inh inhalation DAILY 03/03/23 03/03/23 Unknown History 62.5 mcg-vilant 25 mcg inhalat.powder (Trelegy Ellipta) hydrochlorothiazide 25 mg tablet 25 mg PO DAILY 03/03/23 03/03/23 Unknown History rosuvastatin 10 mg tablet (Crestor) 40 mg PO QAM 05/12/23 Unknown History <Kwabena Alamo MD - Last Filed: 01/13/25 19:48> Allergies/Adverse Reactions: Allergies Allergy/AdvReac Type Severity Reaction Status Date / Time No Known Allergies Allergy Verified 01/12/25 17:28 <Kwabena Alamo MD - Last Filed: 01/13/25 19:48> Review of Systems 2 Review of Systems: As reviewed above in HPI <Kwabena Alamo MD - Last Filed: 01/13/25 19:48> [facility] Past Medical History Medical History: Medical History Elevated ALT measurement Hypertension Obesity Irritable bowel syndrome with diarrhea BRBPR (bright red blood per rectum) Abdominal cramping CAD (coronary artery disease) Chronic diarrhea <Kwabena Alamo MD - Last Filed: 01/13/25 19:48> Family History Family History: Family History Father Acute myocardial infarction Congestive heart failure CAD (coronary artery disease) of artery bypass graft Mother Asthma <Kwabena Alamo MD - Last Filed: 01/13/25 19:48> Social History Social History: Social History Smoking packs per day: 0.25 Smoking cigarettes per day: 5.0 Years smoked: 5 Smoking pack-years: 1.25 Smoking status: Former smoker Tobacco type: cigarettes Smoking end date: 06/13/13 Additional smoking assessment comments: states he currenlty uses marajuana Alcohol intake: current Drinks per week: 10 Substance use: current Substance use type: marijuana Last use: 07/07/2022 Lack of Transportation: No Lack of Food: Never True Current Housing: I Have Housing Concerned About Future Housing: No Difficulty Paying Gas/Electric Bills: No Difficulty Paying for Meds: No Currently Unemployed: No Education: Master's Degree or Higher Difficulty w/ Childcare or Family Care: No Spiritual care concerns: No <Kwabena Alamo MD - Last Filed: 01/13/25 19:48> Exam 2 Narrative: GENERAL: [Well-appearing, well-nourished, and in no acute distress.] HEAD: [Normocephalic, atraumatic.] EYES: [PERRLA and EOMI.] ENT: Nares clear, no rhinorrhea or epistaxis. Mucous membranes moist. NECK: Supple. CHEST: [Clear to auscultation. No respiratory distress.] HEART: [Regular rate and rhythm]. No murmur heard. [Normal peripheral pulses.] ABDOMEN: [Soft, nondistended], [nontender], [No rigidity or guarding] EXTREMITIES: Normal range of motion. [No edema.] SKIN: Warm, dry, no rash. NEURO: [No focal deficits]. Alert and oriented [x3.] PSYCH: [Normal mood and affect.] <Kwabena Alamo MD - Last Filed: 01/13/25 19:48> Course Reevaluation(s) Reevaluation #1: Repeat EKG appears identical to his initial EKG. No new changes. Repeat troponin is negative. He is smiling and joking and making jokes and appears quite comfortable in the room at time of discharge. In no distress and agreeable to outpatient management with return precautions. <Deloris Fuentes MD - Last Filed: 01/12/25 21:34> Vital Signs Vital signs: Vital Signs Temperature 36.4 C 01/12/25 17:22 Pulse Rate 81 01/12/25 17:22 Respiratory Rate 16 01/12/25 17:22 Blood Pressure 175/100 H 01/12/25 17:22 Pulse Oximetry 100 01/12/25 17:22 Temperature 36.4 C 01/12/25 17:22 Pulse Rate 65 01/12/25 20:00 Respiratory Rate 18 01/12/25 20:00 Blood Pressure 169/104 H 01/12/25 20:00 Pulse Oximetry 97 01/12/25 20:00 <Kwabena Alamo MD - Last Filed: 01/13/25 19:48> Vital Signs Temperature 36.4 C 01/12/25 17:22 Pulse Rate 81 01/12/25 17:22 Respiratory Rate 16 01/12/25 17:22 Blood Pressure 175/100 H 01/12/25 17:22 Pulse Oximetry 100 01/12/25 17:22 Temperature 36.4 C 01/12/25 17:22 Pulse Rate 65 01/12/25 20:00 Respiratory Rate 18 01/12/25 20:00 Blood Pressure 169/104 H 01/12/25 20:00 Pulse Oximetry 97 01/12/25 20:00 <Deloris Fuentes MD - Last Filed: 01/12/25 21:34> MDM - Recheck/Abnormal Lab/Rx MDM Narrative Medical decision making narrative: 39-year-old male with a history of coronary artery disease with stents in his right RCA for complete occlusion. He has a history of hypertension hyperlipidemia as well. Patient presents to the emergency department today with concerns of his blood pressure being elevated as well as a mild headache. States that he takes multiple blood pressure medications but for last week has been noncompliant with several doses specially is aspirin. Denies any chest pain or chest discomfort, no shortness a breath, abdominal pain, fever, chills. No traumatic injuries. No vision deficits and states that headache is like a tension type in a bandlike distribution around his head. Intermittent in nature but very mild in sensation. Not the worst headache of his life. Did not call his doctor and is not coordinated with his PCP about his blood pressure or his blood pressure regimen. He previously was on a blood pressure regimen that controlled at adequately and this was changed several months ago by his doctor. Patient is not any acute distress, vital signs do show some hypertension but not severe range. No tachycardia, tachypnea, fever or hypoxia. Unremarkable physical examination with no signs of any vascular anomalies, strong symmetric pulses, clear breath sounds, no signs of any neurological deficits. Laboratory studies were obtained including troponin, EKG, chest x-ray, CT of the head to rule out intracranial pathology such as subarachnoid hemorrhage but very unlikely. Troponin 3 hour ordered as well given his history of coronary disease. Initial EKG was nonischemic. Patient given a Tylenol and aspirin for symptoms until workup completed. Patient's initial workup so far is unrevealing with a negative troponin, normal electrolytes, LFTs at the chronic levels. CT scan without any acute findings. Chest x-ray of the findings. EKG with no ischemic evidence. Delta troponin is negative and patient will be discharged home assuming unremarkable with recommendations to follow up with his PCP. Patient care signed over to oncoming ER physician pending troponin delta and discharge home likely. <Kwabena Alamo MD - Last Filed: 01/13/25 19:48> Medical Records Attestation: I reviewed the patient's medical records. <Kwabena Alamo MD - Last Filed: 01/13/25 19:48> Lab Data Attestation: I reviewed the patient's lab results. <Kwabena Alamo MD - Last Filed: 01/13/25 19:48> Result diagrams: 01/12/25 17:40 01/12/25 17:40 <Kwabena Alamo MD - Last Filed: 01/13/25 19:48> Labs: Lab Results 01/12/25 01/12/25 Range/Units 17:40 20:45 WBC 5.9 (4.5-10.0) K/mm3 RBC 5.04 (4.6-6.20) M/mm3 Hgb 16.7 (14.0-18.0) g/dL Hct 48.8 (42.0-52.0) % MCV 96.8 (80-100) fl MCH 33.1 (26-34) pg MCHC 34.2 (32-36) g/dl RDW 13.0 (11.5-14.5) % Plt Count 187 (150-375) k/mm3 MPV 9.9 (7.4-10.4) fl Immature Gran % (Auto) 0.2 (0-0.5) % Neut % (Auto) 65.0 (45.5-73.1) % Lymph % (Auto) 25.2 (18.3-44.2) % [place] % (Auto) 6.1 (2.6-8.5) % Eos % (Auto) 2.5 (0-4.4) % Baso % (Auto) 1.0 (0.2-1.2) % Lymph # (Auto) 1.49 (0.9-3.2) K/mm3 [place] # (Auto) 0.4 (0.1-0.6) K/mm3 Eos # (Auto) 0.2 (0-0.3) K/mm3 Baso # (Auto) 0.1 (0.0-0.1) K/mm3 Abs Immat Gran (auto) 0.01 (0.00-0.031) K/mm3 Absolute Neuts (auto) 3.9 (1.3-6.7) K/mm3 Absolute Nucleated RBC 0.000 (0.0-0.012) K/mm3 Nucleated RBC % 0.0 (0.0-0.2) % PT 14.0 (11.1-14.7) Seconds INR 1.1 APTT 25.7 (22.3-36.8) Seconds Sodium 138 (137-145) mmol/L Potassium 3.6 (3.4-5.0) mmol/L Chloride 101 (98-107) mmol/L Carbon Dioxide 25 (22-30) mmol/L Anion Gap 12 (4-12) mmol/L BUN 17 (9-20) mg/dL Creatinine 1.07 (0.7-1.3) mg/dL Estim Creat Clear Calc 88 ml/min Estimated GFR > 60 (59 - ) Glucose 152 H (65-110) mg/dL Calcium 9.6 (8.4-10.2) mg/dL Total Bilirubin 0.7 (0.2-1.3) mg/dL AST 136 H (17-59) U/L ALT 119 H (6-50) U/L Alkaline Phosphatase 71 (38-126) U/L Troponin I < 0.012 < 0.012 (0.000-0.034) ng/mL Total Protein 8.9 H (6.3-8.2) g/dL Albumin 4.8 (3.5-5.1) g/dL Lipase 64 (23-300) U/L <Kwabena Alamo MD - Last Filed: 01/13/25 19:48> Lab Results 08/02/25 08/02/25 Range/Units 17:40 20:45 WBC 5.9 (4.5-10.0) K/mm3 RBC 5.04 (4.6-6.20) M/mm3 Hgb 16.7 (14.0-18.0) g/dL Hct 48.8 (42.0-52.0) % MCV 96.8 (80-100) fl MCH 33.1 (26-34) pg MCHC 34.2 (32-36) g/dl RDW 13.0 (11.5-14.5) % Plt Count 187 (150-375) k/mm3 MPV 9.9 (7.4-10.4) fl Immature Gran % (Auto) 0.2 (0-0.5) % Neut % (Auto) 65.0 (45.5-73.1) % Lymph % (Auto) 25.2 (18.3-44.2) % [place] % (Auto) 6.1 (2.6-8.5) % Eos % (Auto) 2.5 (0-4.4) % Baso % (Auto) 1.0 (0.2-1.2) % Lymph # (Auto) 1.49 (0.9-3.2) K/mm3 [place] # (Auto) 0.4 (0.1-0.6) K/mm3 Eos # (Auto) 0.2 (0-0.3) K/mm3 Baso # (Auto) 0.1 (0.0-0.1) K/mm3 Abs Immat Gran (auto) 0.01 (0.00-0.031) K/mm3 Absolute Neuts (auto) 3.9 (1.3-6.7) K/mm3 Absolute Nucleated RBC 0.000 (0.0-0.012) K/mm3 Nucleated RBC % 0.0 (0.0-0.2) % PT 14.0 (11.1-14.7) Seconds INR 1.1 APTT 25.7 (22.3-36.8) Seconds Sodium 138 (137-145) mmol/L Potassium 3.6 (3.4-5.0) mmol/L Chloride 101 (98-107) mmol/L Carbon Dioxide 25 (22-30) mmol/L Anion Gap 12 (4-12) mmol/L BUN 17 (9-20) mg/dL Creatinine 1.07 (0.7-1.3) mg/dL Estim Creat Clear Calc 88 ml/min Estimated GFR > 60 (59 - ) Glucose 152 H (65-110) mg/dL Calcium 9.6 (8.4-10.2) mg/dL Total Bilirubin 0.7 (0.2-1.3) mg/dL AST 136 H (17-59) U/L ALT 119 H (6-50) U/L Alkaline Phosphatase 71 (38-126) U/L Troponin I < 0.012 < 0.012 (0.000-0.034) ng/mL Total Protein 8.9 H (6.3-8.2) g/dL Albumin 4.8 (3.5-5.1) g/dL Lipase 64 (23-300) U/L <Deloris Fuentes MD - Last Filed: 01/12/25 21:34> Imaging Data Attestation: I personally reviewed and interpreted this imaging study as follows: < Kwabena Alamo MD - Last Filed: 01/13/25 19:48> My impression: Impressions Chest X-Ray 01/12/25 18:05 IMPRESSION: No acute cardiopulmonary process. Head CT 01/12/25 18:59 IMPRESSION: No acute intracranial process. <Kwabena Alamo MD - Last Filed: 01/13/25 19:48> Discharge Plan Discharge Clinical Impression: Uncontrolled hypertension, CAD (coronary artery disease), Asymptomatic hypertension <Kwabena Alamo MD - Last Filed: 01/13/25 19:48> Patient Disposition: Home <Kwabena Alamo MD - Last Filed: 01/13/25 19:48> Condition: Stable <Kwabena Alamo MD - Last Filed: 01/13/25 19:48> Instructions: Antibiotic Form, Chronic Hypertension (DC) <Kwabena Alamo MD - Last Filed: 01/13/25 19:48> Additional Instructions: Your laboratory values do not show any signs of any organ dysfunction or damage from her elevated blood pressure readings. CT scan, EKG and chest x-ray are unremarkable. Call your doctor for close follow-up and titration of your medications to have better blood pressure control. Return with any emergent concerns. <Kwabena Alamo MD - Last Filed: 01/13/25 19:48> Patient Language: Mongolian <Kwabena Alamo MD - Last Filed: 01/13/25 19:48> Prescriptions: No Action hydrochlorothiazide 25 mg tablet 25 mg PO DAILY Trelegy Ellipta 100-62.5-25 mcg blister with device 1 inh inhalation DAILY clopidogrel [Plavix] 75 mg tablet 75 mg PO DAILY rosuvastatin [Crestor] 10 mg tablet 40 mg PO QAM venlafaxine 75 mg capsule,extended release 24hr 75 mg PO DAILY valsartan 320 mg tablet 320 mg PO DAILY hydroxyzine HCl 25 mg tablet 25 mg PO QID PRN (Reason: Anxiety) albuterol sulfate 90 mcg/actuation HFA aerosol inhaler 2 puff INHALATION Q6H PRN (Reason: Shortness Of Breath Or Wheezing) metoprolol succinate [Toprol XL] 100 mg Tablet Extended Release 24 Hr 100 mg PO QAM Qty: 30 0RF aspirin 81 mg Tablet,Delayed Release (Dr/Ec) 81 mg PO DAILY Qty: 30 0RF nitroglycerin [Nitrostat] 0.4 mg Tablet, Sublingual 0.4 mg sublingual Q5MIN PRN (Reason: Chest Pain) Qty: 30 0RF ondansetron 4 mg tablet,disintegrating 4 mg PO Q8H PRN (Reason: nausea and vomiting) Qty: 14 0RF hyoscyamine sulfate 0.375 mg tablet extended release 12 hr See Rx Instructions .ROUTE .COMPLEX Qty: 60 3RF Dose Instruction: TAKE 1 TABLET BY MOUTH EVERY 12 HOURS Rx Instructions: TAKE 1 TABLET BY MOUTH EVERY 12 HOURS <Kwabena Alamo MD - Last Filed: 01/13/25 19:48> Follow-up/Referrals: Green,Terrence Stein MD [Primary Care Provider] - <Kwabena Alamo MD - Last Filed: 01/13/25 19:48>
[2025-01-12 20:00] VITALS: BP 169/104; PULSE 65; RESP 18; O2SAT 97
[2025-01-12] MEDS: LORazepam (*CRX) 1 MG TABLET PO (20:00)
--- NOTE | 2025-01-12 20:40 | ECG_ITS ---
Test Date: 2025-01-12 20:50:15 Measurements Intervals [place] Rate: 62 P: 30 WI: 149 QRS: 40 QRSD: 89 T: 17 QT: 426 QTc: 434 Interpretive Statements SINUS RHYTHM MINIMAL Q WAVES- INFERIOR LEADS BORDERLINE ECG Compared to ECG 01/12/2025 17:32:13 No significant changes Electronically Signed On 01-13-2025 08:15:25 CDT by Volodymyr Bradley D.O.
[2025-01-12 21:29] LABS: Troponin I < 0.012 ng/mL (0.000-0.034)
== END 2025-01-12 21:39 | disposition home or self-care (01) ==
PROVIDERS: Student in an Organized Health Care Education/Training Program; Emergency Provider Emergency Medicine; PCP Internal Medicine
DX: I10 Essential (primary) hypertension (principal); I25.10 Atherosclerotic heart disease of native coronary artery without angina pectoris; T46.5X6A Underdosing of other antihypertensive drugs, initial encounter; T39.016A Underdosing of aspirin, initial encounter; E78.5 Hyperlipidemia, unspecified; E66.9 Obesity, unspecified; Z68.30 Body mass index [BMI] 30.0-30.9, adult; K58.0 Irritable bowel syndrome with diarrhea; Z95.5 Presence of coronary angioplasty implant and graft; Z87.891 Personal history of nicotine dependence; Z79.02 Long term (current) use of antithrombotics/antiplatelets; Z79.899 Other long term (current) drug therapy; Z79.82 Long term (current) use of aspirin; R94.31 Abnormal electrocardiogram [ECG] [EKG]
CPT/HCPCS: 36415; 70450; 71046; 80053; 83690; 84484; 85025; 85610; 85730; 93005; 99284; A9270